=== PATIENT | female | born 1945 | race Caucasian/White ===

== ENCOUNTER 2021-07-03 12:37 | Emergency (ER) | payer MEDICARE ==
--- NOTE | 2021-07-03 13:28 | ERPHSYRPT ---
- History of Present Illness Time Seen by Provider: 07/03/21 12:45 Source: patient Exam Limitations: no limitations Patient Subjective Stated Complaint: PT presented alert and oriented X 3, skin pwd Pt mood is depressed, pt yawning. PT speech slightly slurred. Pt stated she found her grandson this morning and took an extra xanax. PT states her xanax is 2 mg each and she usually does not take many. Pt stated she was sad. PT denied any suicidal ideation several times. Triage Nursing Assessment: PT presented alert and oriented X 3, sleepy, yawning, slightly slurred speech. Physician History: Patient is a 76-year-old female presents to our ED with an accidental overdose of Xanax. Patient states that she found her grandson in his room this morning. Daughter at bedside states that patient had a history of drug addiction and they believe he likely overdosed. While in despair patient took 2 Xanax to help her cope with the situation. Patient took a total of 4 mg of Xanax. Family became concerned and called 911. Upon arrival patient's speech was a little slurred. No focal or lateralizing symptoms. Patient denies pain. No chest pain or shortness of breath. IV access established by EMS. IV fluids infused. Patient has no complaints at this time. No fever. No nausea or vomiting. No diarrhea. No rash. No cough. Patient is visibly upset due to the loss of her grandson. Patient denies homicidal and suicidal ideation Timing/Duration: today Severity: moderate Modifying Factors: Improves With: nothing Associated Symptoms: denies symptoms Allergies/Adverse Reactions: NKA Allergy (Verified 10/08/15 13:52) Home Medications: ALPRAZolam 1 MG [Xanax 1 mg] 1 mg PO BID 10/08/15 [History] Citalopram Hydrobromide [Celexa] 1 tab PO QAM 10/08/15 [History] Hx Tetanus, Diphtheria Vaccination/Date Given: No Hx Influenza Vaccination/Date Given: No Hx Pneumococcal Vaccination/Date Given: No Immunizations Up to Date: Yes Travel Risk - International Travel Have you traveled outside of the country in past 3 weeks: No - Coronavirus Screening Are you exhibiting any of the following symptoms?: No Close contact with a COVID-19 positive Pt in past 14-21 Days: No - Vaccine Status Have you recieved a Covid-19 vaccination: No - Review of Systems Constitutional: No Symptoms, No Fever, No Chills Eyes: No Symptoms Ears, Nose, & Throat: No Symptoms Respiratory: No Symptoms, No Cough, No Dyspnea Cardiac: No Symptoms, No Chest Pain, No Edema, No Syncope Abdominal/Gastrointestinal: No Symptoms, No Abdominal Pain, No Nausea, No Vomiting, No Diarrhea Genitourinary Symptoms: No Symptoms, No Dysuria Musculoskeletal: No Symptoms, No Back Pain, No Neck Pain Skin: No Symptoms, No Rash Neurological: No Symptoms, Speech Changes, Other (No facial droop no paralysis or weakness. No focal or lateralizing symptoms), No Dizziness, No Focal Weakness, No Sensory Changes, No Tics, No Tremors, No Vertigo Psychological: No Symptoms Endocrine: No Symptoms Hematologic/Lymphatic: No Symptoms Immunological/Allergic: No Symptoms All Other Systems: Reviewed and Negative - Past Medical History Pertinent Past Medical History: Yes Neurological History: No Pertinent History ENT History: No Pertinent History Cardiac History: No Pertinent History Respiratory History: COPD Endocrine Medical History: No Pertinent History Musculoskeletal History: Arthritis GI Medical History: No Pertinent History History: No Pertinent History Psycho-Social History: Anxiety Female Reproductive Disorders: Other Other Medical History: had partial hysterectomy due to dropped uterus and bladder tied up at that time - Past Surgical History Past Surgical History: Yes Neuro Surgical History: No Pertinent History Cardiac: No Pertinent History Respiratory: No Pertinent History Gastrointestinal: Cholecystectomy Genitourinary: No Pertinent History, Other Musculoskeletal: Joint Replacement Female Surgical History: Hysterectomy Other Surgical History: partial hysterectomy for uterus dropped and bladder tied up at that time - Social History Smoking Status: Never smoker Exposure to second hand smoke: Yes (grandson occasionall) Drug Use: none Patient Lives Alone: Yes - Nursing Vital Signs Nursing Vital Signs: Initial Vital Signs Temperature 98.2 F 07/03/21 12:39 Pulse Rate 74 07/03/21 12:39 Respiratory Rate 18 07/03/21 12:39 Blood Pressure 128/66 07/03/21 12:39 O2 Sat by Pulse Oximetry 99 07/03/21 12:39 Pain Scale Pain Intensity 0 - Physical Exam General Appearance: no apparent distress, alert Eye Exam: PERRL/EOMI, eyes nml inspection Ears, Nose, Throat Exam: normal ENT inspection, TMs normal, pharynx normal, moist mucous membranes Neck Exam: normal inspection, non-tender, supple, full range of motion Respiratory Exam: normal breath sounds, lungs clear, airway intact, No respiratory distress Cardiovascular Exam: regular rate/rhythm, normal heart sounds, normal peripheral pulses Gastrointestinal/Abdomen Exam: soft, normal bowel sounds, No tenderness, No mass Back Exam: normal inspection, normal range of motion, No CVA tenderness, No vertebral tenderness Extremity Exam: normal inspection, normal range of motion, pelvis stable Neurologic Exam: alert, oriented x 3, cooperative, bead builder II-XII nml as tested, normal mood/affect, nml cerebellar function, sensation nml, intoxicated appearance, depressed mood/affect, No motor deficits, No sensory deficit, No agitation Skin Exam: normal color, warm, dry, No rash Lymphatic Exam: No adenopathy SpO2 Interpretation: normal SpO2: 99 O2 Delivery: Room Air - Course Nursing assessment & vital signs reviewed: Yes EKG Interpreted by Me: RATE (74), Sinus Rhythm, NORMAL AXIS, Other (Prolonged AL interval. Left anterior fascicular block.) Ordered Tests: Active Orders 24 hr Category Date Time Status Computational Physicist STAT Care 07/03/21 13:17 Active IV Insertion STAT Care 07/03/21 13:17 Active Pulse Oximetry (ED) STAT Care 07/03/21 13:17 Active Medication Summary Generic Name Dose Route Start Last Admin Trade Name Freq PRN Reason Stop Dose Admin Sodium Chloride 1,000 mls @ 100 mls/hr 07/03/21 13:30 07/03/21 13:43 Sodium Chloride 0.9% 1000 Ml IV 08/02/21 13:29 100 mls/hr .Q10H MARILYN Administration - Progress Progress: improved Progress Note: Patient reassessed. She feels well. Patient ambulated in our ED with some assistance from her daughter. Patient states she feels well and is ready to go home. Patient daughter at bedside states she will go home with mother. Vitals have been stable throughout her stay in our ED. EKG normal sinus rhythm. Patient denies pain. No nausea or vomiting. No diaphoresis. Patient voices no other complaints at this time. She denies homicidal suicidal ideation. Portions of this note were created with voice recognition technology. There may be grammatical, spelling, punctuation or sound alike errors 07/03/21 16:20 Patient is 6 hours post accidental overdose 07/03/21 16:25 Counseled pt/family regarding: diagnosis, need for follow-up - Departure Departure Disposition: Home Clinical Impression: Benzodiazepine (tranquilizer) overdose Condition: Stable Critical Care Time: No Referrals: HAY DENNIS MD [Primary Care Provider] - Follow up/PCP as directed Additional Instructions: Discharge/Care Plan BETTIE TYLER was seen on 07/03/21 in the Emergency Room. The patient was counseled regarding Diagnosis,Lab results, Imaging studies, need for follow up and when to return to the Emergency Room. Prescriptions given: Discharge Note I have spoken with the patient and/or caregivers. I have explained the patient's condition, diagnosis and treatment plan based on the information available to me at this time. I have answered the patient's and/or caregiver's questions and ad dressed any concerns. The patient and/or caregivers have as good understanding of the patient's diagnosis, condition and treatment plan as can be expected at this point. The vital signs have been stable. The patient's condition is stable and appropriate for discharge from the emergency department. The patient will pursue further outpatient evaluation with the primary care physician or other designated or consulting physician as outlined in the discharge instructions. The patient and/or caregivers are agreeable to this plan of care and follow-up instructions have been explained in detail. The patient and/or caregivers have received these instruction. The patient/and or caregivers are aware that any significant change in condition or worsening of symptoms should prompt an immediate return to this or the closest emergency department or call 911.
[2021-07-03] MEDS ORDERED: Sodium Chloride 0.9% 1000 ML 1,000 ML IV SCH (13:30)
[2021-07-03] MEDS ORDERED: Sodium Chloride 0.9% 1000 ML 1,000 ML ONE (13:42)
[2021-07-03 16:04] VITALS: BP 141/76; PULSE 73
[2021-07-03 16:25] VITALS: O2SAT 99
== END 2021-07-03 16:37 | disposition home or self-care (01) ==
LOC: ED 12:37
DX: T42.4X1A Poisoning by benzodiazepines, accidental (unintentional), initial encounter (principal); R47.81 Slurred speech
CPT/HCPCS: 36000; 93041; 94760; 96360; 96361; 99284

== ENCOUNTER 2024-01-19 11:34 | Emergency (ER) | payer MEDICARE ==
[2024-01-19 12:00] VITALS: TEMP 98
--- NOTE | 2024-01-19 12:07 | ERPHSYRPT ---
- History of Present Illness Time Seen by Provider: 01/19/24 11:55 Source: patient Exam Limitations: no limitations Patient Subjective Stated Complaint: pt fell in her home this morning at an unknown time and laid for 2-3 hours and could not get up, pt did rotate from side to side Triage Nursing Assessment: Pt brought to the ER by EMS, vitals wnl, denies pain, pt had been incontinent of urine and stool, pt was unsure how long she was on the floor, states that she usually wakes around 0830, denies LOC, denies any injuries, denies hitting her head, pt does not know what caused her to fall, reports that she walks with a cane when she leaves the house, pt's oxygen was low 90's upon EMS arrival and was placed on 2L NC and she is now at 96%, redness to the lateral left knee, no other injuries noted Physician History: Pt states she fell this morning about 2-3 hours ago but does not know how she fell; states for the past year she has had similar episodes where she has fallen and does not know the reason. Pt c/o weakness in her left knee for years, a non- productive cough for years and urinary frequency for years. Pt states she has had diarrhea for the past 3 years including this morning. Pt denies chest pain, fever, abdominal pain. Pt states she has had generalized weakness. Allergies/Adverse Reactions: NKA Allergy (Verified 01/19/24 12:00) Home Medications: ALPRAZolam 1 MG [Xanax 1 mg] 2 mg PO DAILY 10/08/15 [History] Meloxicam [Mobic] 15 mg PO DAILY 01/19/24 [History] Hx Tetanus, Diphtheria Vaccination/Date Given: No Hx Influenza Vaccination/Date Given: No Hx Pneumococcal Vaccination/Date Given: No Travel Risk - International Travel Have you traveled outside of the country in past 3 weeks: No - Emerging Infectious Disease Are you exhibiting symptoms associated with any current EIDs: No - Review of Systems Constitutional: No Fever Ears, Nose, & Throat: No Throat Pain Respiratory: Cough Cardiac: No Chest Pain Abdominal/Gastrointestinal: Diarrhea, No Abdominal Pain Musculoskeletal: Other (left knee weakness) Neurological: No Headache, No Sensory Changes - Past Medical History Pertinent Past Medical History: Yes Neurological History: No Pertinent History ENT History: No Pertinent History Cardiac History: No Pertinent History Respiratory History: COPD Endocrine Medical History: No Pertinent History Musculoskeletal History: Arthritis GI Medical History: No Pertinent History History: No Pertinent History Psycho-Social History: Anxiety Female Reproductive Disorders: Other Other Medical History: had partial hysterectomy due to dropped uterus and bladder tied up at that time - Past Surgical History Past Surgical History: Yes Neuro Surgical History: No Pertinent History Cardiac: No Pertinent History Respiratory: No Pertinent History Gastrointestinal: Cholecystectomy Genitourinary: No Pertinent History, Other Musculoskeletal: Joint Replacement Female Surgical History: Hysterectomy Other Surgical History: partial hysterectomy for uterus dropped and bladder tied up at that time - Social History Smoking Status: Never smoker Exposure to second hand smoke: Yes (grandson occasionall) Drug Use: none Patient Lives Alone: Yes - Social Determinants of Health Will the patient participate in the screening: Yes Do you worry about a steady place to live?: No Do you have any problems with any of the following?: No known problems In the past 12 months,have you had to go without utilities?: No Transportation Issues: No Has anyone in your support network made you feel unsafe?: No Have you or anyone in your house had to go without enough: No - Nursing Vital Signs Nursing Vital Signs: Initial Vital Signs Temperature 98.0 F 01/19/24 11:45 Pulse Rate 87 01/19/24 11:45 Respiratory Rate 17 01/19/24 11:45 Blood Pressure 131/68 01/19/24 11:45 O2 Sat by Pulse Oximetry 95 01/19/24 11:45 Pain Scale Pain Intensity 0 - Bhavik Coma Score Best Eye Response (Wendel): (4) open spontaneously Best Verbal Response (Wendel): (5) oriented Best Motor Response (Bhavik): (6) obeys commands Wendel Total: 15 - Physical Exam General Appearance: alert Head Injury: no evidence of injury Eye Exam: eyes nml inspection ENT Exam: airway nml, hearing grossly normal Neck Exam: trachea midline Respiratory/Chest Exam: normal breath sounds Cardiovascular Exam: normal heart sounds Gastrointestinal Exam: soft, normal bowel sounds, No tenderness Back Exam: normal inspection, No vertebral tenderness Extremity Exam: normal range of motion, other (milk erythema of left knee) Peripheral Pulses: dorsalis-pedis (R): 1+, dorsalis-pedis (L): 1+ Neurologic Exam: alert, cooperative, sensation nml, No motor deficits Skin Exam: No cyanosis SpO2 Interpretation: normal SpO2: 95 O2 Delivery: Room Air - Course Nursing assessment & vital signs reviewed: Yes EKG Interpreted by Me: RATE (95), Sinus Rhythm, Left [place] Deviation, Other (QTc = 463; LAFB) - Radiology Exams Left Knee X-ray Interpretation: Discussed w/ radiologist (Osteopenia and mild/moderate tricompartmental degenerative changes greatest medial compartment. No other bony, articular or soft tissue abnormalities.) Chest X-ray Interpretation: Discussed w/ radiologist (AP/lateral chest obtained on stretcher less inflated and remains grossly clear. 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 Incidental paranasal sinus disease.) Ordered Tests: Active Orders 24 hr Category Date Time Status EKG-ER Only STAT Care 01/19/24 12:16 Active EKG-ER Only STAT Care 01/19/24 14:16 Active IV Insertion STAT Care 01/19/24 12:16 Active CHEST 2 VIEWS (PA AND LAT) Stat Exams 01/19/24 12:16 Completed HEAD WITHOUT CONTRAST [CT] Stat Exams 01/19/24 12:18 Completed KNEE (3 VIEWS) Stat Exams 01/19/24 12:17 Completed AMYLASE Stat Lab 01/19/24 12:45 Completed CBC W DIFF Stat Lab 01/19/24 12:45 Completed CMP Stat Lab 01/19/24 12:45 Completed LIPASE Stat Lab 01/19/24 12:45 Completed TROPONIN Q4H Lab 01/19/24 12:45 Completed TROPONIN Q4H Lab 01/19/24 14:40 Completed TROPONIN Q4H Lab 01/19/24 16:30 Ordered TROPONIN Q4H Lab 01/19/24 18:30 Ordered TROPONIN Q4H Lab 01/19/24 20:30 Ordered TROPONIN Q4H Lab 01/19/24 22:30 Ordered UA W/RFX UR CULTURE Stat Lab 01/19/24 12:16 Ordered Medication Summary Discontinued Medications Generic Name Dose Route Start Last Admin Trade Name Freq PRN Reason Stop Dose Admin Sodium Chloride 1,000 mls @ 999 mls/hr 01/19/24 12:16 01/19/24 14:27 Sodium Chloride 0.9% 1000 Ml IV 01/19/24 13:16 Infused .Q1H1M STA Infusion Sodium Chloride Confirm 01/19/24 12:20 Sodium Chloride 0.9% 1000 Ml Administered 01/19/24 12:21 Dose 1,000 mls @ .ROUTE .[facility] Lab/Rad Data: Laboratory Result Diagrams 01/19/24 12:45 01/19/24 12:45 Laboratory Results 01/19/24 01/19/24 01/19/24 Range/Units 14:40 12:45 12:45 WBC (3.98-10.04) x10^3/uL RBC (3.93-5.22) x10^6/uL Hgb (11.2-15.7) g/dL Hct (34.1-44.9) % MCV (79.4-94.8) fL MCH (25.6-32.2) pg MCHC (32.2-35.5) g/dL RDW (11.7-14.4) % Plt Count (182-369) x10^3/uL MPV (9.4-12.3) fL Gran % (34.0-71.1) % Immature Gran % (Auto) (0.001-0.429) % Nucleat RBC Rel Count (0.00-0.2) % Eos # (Auto) (0.04-0.36) x10^3/uL Immature Gran # (Auto) (0.001-0.031) x10^3u/L Absolute Lymphs (auto) (1.18-3.74) x10^3/uL Absolute Monos (auto) (0.24-0.86) x10^3/uL Absolute Nucleated RBC (0.00-0.012) x10^3u/L Lymphocytes % (19.3-51.7) % Monocytes % (4.7-12.5) % Eosinophils % (0.7-5.8) % Basophils % (0.1-1.2) % Absolute Granulocytes (1.56-6.13) x10^3/uL Basophils # (0.01-0.08) x10^3/uL Sodium 140 (135-145) mmol/L Potassium 3.9 (3.5-5.1) mmol/L Chloride 108 H (98-107) mmol/L Carbon Dioxide 25 (22-30) mmol/L Anion Gap 11.7 (5-15) MEQ/L BUN 8 (7-17) mg/dL Creatinine 0.41 L (0.52-1.04) mg/dL Estimated GFR 100.0 ML/MIN Glucose 109 H (74-106) mg/dL Calcium 9.5 (8.4-10.2) mg/dL Total Bilirubin 1.00 (0.2-1.3) mg/dL AST 35 (14-36) U/L ALT 20 (0-35) U/L Alkaline Phosphatase 82 (38-126) U/L Troponin I 0.047 H* 0.033 (0.000-0.033) ng/mL Serum Total Protein 6.8 (6.3-8.2) g/dL Albumin 4.0 (3.5-5.0) g/dL Amylase 70 (30-110) U/L Lipase 22 L (23-300) U/L Slides for Path Review 01/19/24 Range/Units 12:45 WBC 9.3 (3.98-10.04) x10^3/uL RBC 4.53 (3.93-5.22) x10^6/uL Hgb 13.6 (11.2-15.7) g/dL Hct 42.1 (34.1-44.9) % MCV 92.9 (79.4-94.8) fL MCH 30.0 (25.6-32.2) pg MCHC 32.3 (32.2-35.5) g/dL RDW 13.4 (11.7-14.4) % Plt Count 215 (182-369) x10^3/uL MPV 9.8 (9.4-12.3) fL Gran % 82.1 H (34.0-71.1) % Immature Gran % (Auto) 0.3 (0.001-0.429) % Nucleat RBC Rel Count 0.0 (0.00-0.2) % Eos # (Auto) 0 L (0.04-0.36) x10^3/uL Immature Gran # (Auto) 0.03 (0.001-0.031) x10^3u/L Absolute Lymphs (auto) 0.89 L (1.18-3.74) x10^3/uL Absolute Monos (auto) 0.73 (0.24-0.86) x10^3/uL Absolute Nucleated RBC 0.00 (0.00-0.012) x10^3u/L Lymphocytes % 9.6 L (19.3-51.7) % Monocytes % 7.8 (4.7-12.5) % Eosinophils % 0.0 L (0.7-5.8) % Basophils % 0.2 (0.1-1.2) % Absolute Granulocytes 7.64 H (1.56-6.13) x10^3/uL Basophils # 0.02 (0.01-0.08) x10^3/uL Sodium (135-145) mmol/L Potassium (3.5-5.1) mmol/L Chloride (98-107) mmol/L Carbon Dioxide (22-30) mmol/L Anion Gap (5-15) MEQ/L BUN (7-17) mg/dL Creatinine (0.52-1.04) mg/dL Estimated GFR ML/MIN Glucose (74-106) mg/dL Calcium (8.4-10.2) mg/dL Total Bilirubin (0.2-1.3) mg/dL AST (14-36) U/L ALT (0-35) U/L Alkaline Phosphatase (38-126) U/L Troponin I (0.000-0.033) ng/mL Serum Total Protein (6.3-8.2) g/dL Albumin (3.5-5.0) g/dL Amylase (30-110) U/L Lipase (23-300) U/L Slides for Path Review YES - Progress Progress: unchanged Will see patient in: other (Spoke with & discussed pt with Dr. Beasley(Hospitalist)([id number]) who accepted pt for transfer to [facility] as a direct admission.) Counseled pt/family regarding: lab results, diagnosis, rad results Medical Desision Making - Diagnostic Testing Diagnostic test were ordered, analyzed, and reviewed by me: Yes Radiological Interpretation: Discussed w/ radiologist - Departure Departure Disposition: Transfer ([facility]) Clinical Impression: Fall, Weakness, Elevated troponin Condition: Stable Critical Care Time: No Referrals: HAY DENNIS MD [Primary Care Provider] - Follow up/PCP as directed
[2024-01-19] MEDS ORDERED: Sodium Chloride 0.9% 1000 ML 1,000 ML ONE (12:20)
[2024-01-19] MEDS: Sodium Chloride 0.9% 1000 ML 1,000 ML IV STA (12:21)
[2024-01-19 12:56] LABS: Absolute Neutrophil Ct (ANC) 7.64 x10^3/uL (1.56-6.13); BASOPHIL % 0.2 % (0.1-1.2); Basophil (Absolute #) 0.02 x10^3/uL (0.01-0.08); Eosinophil (Absolute #) 0 x10^3/uL (0.04-0.36); Hematocrit 42.1 % (34.1-44.9); Hemoglobin 13.6 g/dL (11.2-15.7); IMMATURE GRAN # 0.03 x10^3u/L (0.001-0.031); IMMATURE GRAN % 0.3 % (0.001-0.429); Lymphocyte (Absolute #) 0.89 x10^3/uL (1.18-3.74); Lymphocytes % 9.6 % (19.3-51.7); Mean Cell Volume 92.9 fL (79.4-94.8); Mean Corpuscular Hgb Concent. 32.3 g/dL (32.2-35.5); Mean Platelet Volume 9.8 fL (9.4-12.3); Monocyte (Absolute #) 0.73 x10^3/uL (0.24-0.86); Monocytes % 7.8 % (4.7-12.5); Neutrophil % 82.1 % (34.0-71.1); Platelet Count 215 x10^3/uL (182-369); Red Blood Count 4.53 x10^6/uL (3.93-5.22); Red Cell Distribution Width 13.4 % (11.7-14.4); White Blood Count 9.3 x10^3/uL (3.98-10.04)
--- NOTE | 2024-01-19 13:08 | XRAY ---
Indication: Status post fall. Comparison: July 15, 2023 AP/lateral chest obtained on stretcher less inflated and remains grossly clear. Heart not enlarged. Bony thorax intact again with osteopenia and mild degenerative changes. No new/acute findings.
--- NOTE | 2024-01-19 13:08 | XRAY ---
Indication: Status post fall. Comparison: None 3 view left knee demonstrates osteopenia and mild/moderate tricompartmental degenerative changes greatest medial compartment. No other bony, articular, or soft tissue abnormalities.
[2024-01-19 13:10] LABS: ANION GAP 11.7 MEQ/L (5-15); Calcium 9.5 mg/dL (8.4-10.2); Creatinine 1 0.41 mg/dL (0.52-1.04); Potassium 3.9 mmol/L (3.5-5.1); Total Protein 6.8 g/dL (6.3-8.2)
[2024-01-19 13:26] LABS: Slide Review 1 YES
--- NOTE | 2024-01-19 13:38 | XRAY ---
Indication: Found on floor following fall. Altered mental status. Multiple contiguous axial images obtained through the head without contrast. Comparison: None Age-appropriate global atrophy, mild periventricular degenerative micro-ischemia bilaterally, and remote lacunar infarct left basal ganglia. No acute intracranial hemorrhage, abnormal extra-axial fluid collection, or mass effect. Fourth ventricle is midline without hydrocephalus. Bony calvarium intact. Near complete opacification right maxillary and much lesser degree both ethmoid sinuses. Mastoid air cells are clear. 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 Incidental paranasal sinus disease.
[2024-01-19 18:15] VITALS: BP 115/58; PULSE 87; RESP 14; O2SAT 97
== END 2024-01-19 19:26 | disposition short-term general hospital (02) ==
LOC: ED 11:34
DX: R29.6 Repeated falls (principal); R53.1 Weakness; R77.8 Other specified abnormalities of plasma proteins; Z79.899 Other long term (current) drug therapy
CPT/HCPCS: 36415; 70450; 71046; 73562; 80053; 82150; 83690; 84484; 85025; 93005; 96360; 99284

== ENCOUNTER 2024-10-21 12:00 | Inpatient (IN) | payer MEDICARE ==
--- NOTE | 2024-10-21 12:07 | ERPHSYRPT ---
- History of Present Illness Time Seen by Provider: 10/21/24 12:07 Source: patient, EMS Exam Limitations: clinical condition Physician History: Patient brought in by ambulance today after neighbor was checking on patient and unable to get her to come to the door. She was found down on the floor for unknown time period. She is alert and oriented on arrival. She denies sob, cp, abd pain, nausea, vomiting or extremity pain. Patient is able to fully move all extremities. Occurred: other (unknown, within last 24 hours) Reason for Fall: unknown Injuries/Pain Location: no injury Loss of Consciousness: unsure Severity of Pain-Max: none Severity of Pain-Current: none Modifying Factors: Worsens With: nothing Associated Symptoms (Fall): denies symptoms Allergies/Adverse Reactions: NKA Allergy (Verified 10/21/24 13:10) Home Medications: ALPRAZolam 1 MG [Xanax 1 mg] 2 mg PO HS 10/08/15 [History] Lisinopril 5 mg [Zestril 5 MG] 5 mg PO DAILY 10/21/24 [History] Hx Tetanus, Diphtheria Vaccination/Date Given: No Hx Influenza Vaccination/Date Given: No Hx Pneumococcal Vaccination/Date Given: No Travel Risk - Emerging Infectious Disease Are you exhibiting symptoms associated with any current EIDs: No - Review of Systems All Other Systems: Reviewed and Negative - Past Medical History Pertinent Past Medical History: Yes Neurological History: No Pertinent History ENT History: No Pertinent History Cardiac History: No Pertinent History Respiratory History: COPD Endocrine Medical History: No Pertinent History Musculoskeletal History: Arthritis GI Medical History: No Pertinent History History: No Pertinent History Psycho-Social History: Anxiety Female Reproductive Disorders: Other Other Medical History: had partial hysterectomy due to dropped uterus and bladder tied up at that time - Past Surgical History Past Surgical History: Yes Neuro Surgical History: No Pertinent History Cardiac: No Pertinent History Respiratory: No Pertinent History Gastrointestinal: Cholecystectomy Genitourinary: No Pertinent History, Other Musculoskeletal: Joint Replacement Female Surgical History: Hysterectomy Other Surgical History: partial hysterectomy for uterus dropped and bladder tied up at that time - Social History Smoking Status: Never smoker Exposure to second hand smoke: Yes (grandson occasionall) Drug Use: none Patient Lives Alone: Yes - Social Determinants of Health Will the patient participate in the screening: Yes Do you worry about a steady place to live?: No In the past 12 months,have you had to go without utilities?: No Transportation Issues: No Has anyone in your support network made you feel unsafe?: No Have you or anyone in your house had to go w/o enough food: No - Nursing Vital Signs Nursing Vital Signs: Initial Vital Signs Temperature 97.8 F 10/21/24 12:20 O2 Sat by Pulse Oximetry 96 10/21/24 12:20 Pain Scale Pain Intensity 0 - Bhavik Coma Score Best Eye Response ([place]): (4) open spontaneously Best Verbal Response (Bhavik): (5) oriented Best Motor Response (Bhavik): (6) obeys commands Bhavik Total: 15 - Physical Exam General Appearance: no apparent distress Head Injury: no evidence of injury Eye Exam: PERRL/EOMI ENT Exam: airway nml, nml ext.inspection Neck Exam: supple, trachea midline, full range of motion, normal alignment, normal inspection Respiratory/Chest Exam: normal breath sounds, No respiratory distress Cardiovascular Exam: normal heart sounds, regular rate/rhythm Gastrointestinal Exam: soft, No tenderness, No distention, No mass, No guarding, No rebound Back Exam: normal inspection, normal range of motion Extremity Exam: normal inspection, normal range of motion, capillary refill <3 sec, No contusions, No deformities, No lacerations, No joint swelling Neurologic Exam: alert, oriented x 3, cooperative, 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, nml cerebellar function, confusion (at times) Skin Exam: normal color, warm, dry, No rash SpO2 Interpretation: borderline oxygenation O2 Delivery: Room Air - Course Nursing assessment & vital signs reviewed: Yes EKG Interpreted by Me: RATE (86), A-fib, NORMAL AXIS, NORMAL INTERVALS, NORMAL QRS, Non-specific ST Changes - Radiology Exams Chest X-ray Interpretation: Interpreted by me, Infiltrates (right) Ordered Tests: Active Orders 24 hr Category Date Time Status Vessel Operator STAT Care 10/21/24 12:08 Completed Cath for Specimen-Straight STAT Care 10/21/24 12:51 Completed EKG-ER Only STAT Care 10/21/24 12:07 Completed IV Insertion STAT Care 10/21/24 12:07 Completed Oxygen-ED Only Nasal Cannula 2 lpm Care 10/21/24 14:31 Completed CHEST 1 VIEW (PORTABLE) Stat Exams 10/21/24 13:22 Taken ARTERIAL BLOOD GASES Stat Lab 10/21/24 14:29 Results CBC W DIFF Stat Lab 10/21/24 12:15 Completed CK-Creatinine Phosphokinase Stat Lab 10/21/24 12:15 Completed CMP Stat Lab 10/21/24 12:15 Completed CULTURE,URINE Stat Lab 10/21/24 12:51 Received Lactic Acid Stat Lab 10/21/24 14:32 Completed TROPONIN Q4H Lab 10/21/24 12:15 Completed TSH, 3RD Generation Stat Lab 10/21/24 12:15 Completed UA W/RFX UR CULTURE Stat Lab 10/21/24 12:51 Completed Medication Summary Generic Name Dose Route Start Last Admin Trade Name Freq PRN Reason Stop Dose Admin Albuterol/Ipratropium 3 ml 10/21/24 16:21 10/21/24 17:13 Ipratropium/Albuterol Sulfate 3 Ml Ampul.Neb IH 11/20/24 16:20 3 ml Q6HPRN PRN Administration SHORTNESS OF BREATH/WHEEZING Guaifenesin/Codeine Phosphate 10 ml 10/21/24 17:56 Guaifenesin/Codeine Phosphate 5 Ml Udcup PO 11/20/24 17:55 Q4H PRN PRN COUGH Sodium Chloride 1,000 mls @ 100 mls/hr 10/21/24 16:30 10/21/24 17:37 Sodium Chloride 0.9% 1000 Ml IV 11/20/24 16:29 100 mls/hr .Q10H MARILYN Administration Ceftriaxone Sodium 1 gm in 100 mls @ 200 mls/hr 10/22/24 10:00 Rocephin 1 Gm / 100 Ml Nacl IV 11/21/24 09:59 Q24H10 MARILYN Azithromycin 500 mg/ Sodium 250 mls @ 250 mls/hr 10/21/24 22:00 Chloride IV 11/20/24 21:59 Q24H22 MARILYN Nystatin 0 gm 10/21/24 22:00 Nystatin Cream 30 Gm 30 Gm Tube TOP 10/28/24 21:59 BID MARILYN Pantoprazole Sodium 40 mg 10/22/24 10:00 Protonix (Pantoprazole) 40 Mg Tablet PO 11/21/24 09:59 DAILY MARILYN Discontinued Medications Generic Name Dose Route Start Last Admin Trade Name Freq PRN Reason Stop Dose Admin Sodium Chloride 1,000 mls @ 999 mls/hr 10/21/24 12:07 10/21/24 13:30 Sodium Chloride 0.9% 1000 Ml IV 10/21/24 13:07 Infused .Q1H1M STA Infusion Sodium Chloride Confirm 10/21/24 12:21 Sodium Chloride 0.9% 1000 Ml Administered 10/21/24 12:22 Dose 1,000 mls @ ud .ROUTE .STK-MED ONE Ceftriaxone Sodium 2 gm in 100 mls @ 200 mls/hr 10/22/24 14:15 10/21/24 15:15 Rocephin 2 Gm/100 Ml Nacl IV 10/22/24 14:44 Infused STAT ONE Infusion Ceftriaxone Sodium Confirm 10/21/24 14:26 Rocephin 2 Gm/100 Ml Nacl Administered 10/21/24 14:27 Dose 2 gm in 100 mls @ ud IV .STK-MED ONE Nystatin Confirm 10/21/24 17:28 Nystatin Cream 30 Gm 30 Gm Tube Administered 10/21/24 17:29 Dose 30 gm .ROUTE .STK-MED ONE Lab/Rad Data: Laboratory Result Diagrams 10/21/24 12:15 10/21/24 15:35 Laboratory Results 10/21/24 10/21/24 10/21/24 Range/Units 15:35 15:35 15:35 WBC (3.98-10.04) x10^3/uL RBC (3.93-5.22) x10^6/uL Hgb (11.2-15.7) g/dL Hct (34.1-44.9) % MCV (79.4-94.8) fL MCH (25.6-32.2) pg MCHC (32.2-35.5) g/dL RDW (11.7-14.4) % Plt Count (182-369) x10^3/uL MPV (9.4-12.3) fL Gran % (34.0-71.1) % Immature Gran % (Auto) (0.001-0.429) % Nucleat RBC Rel Count (0.00-0.2) % Eos # (Auto) (0.04-0.36) x10^3/uL Immature Gran # (Auto) (0.001-0.031) x10^3u/L Absolute Lymphs (auto) (1.18-3.74) x10^3/uL Absolute Monos (auto) (0.24-0.86) x10^3/uL Absolute Nucleated RBC (0.00-0.012) x10^3u/L Lymphocytes % (19.3-51.7) % Monocytes % (4.7-12.5) % Eosinophils % (0.7-5.8) % Basophils % (0.1-1.2) % Absolute Granulocytes (1.56-6.13) x10^3/uL Basophils # (0.01-0.08) x10^3/uL Puncture Site pCO2 (35-45) mmHg pO2 (75-100) mmHg Base Excess (-2.0-2.0) O2 Saturation (94-100) g/dF ABG pH (7.35-7.45) ABG HCO3 (22-28) ABG O2 Sat (Measured) (95-100) % Randall Test A-a Gradient a/A Ratio Hemoglobin Carboxyhemoglobin (0.0-6.9) % THgb Methemoglobin (1.4-1.5) % Temperature C POC O2 Flow Rate % Sodium 139 (135-145) mmol/L Potassium 3.7 (3.5-5.1) mmol/L Chloride 106 (98-107) mmol/L Carbon Dioxide 24 (22-30) mmol/L Anion Gap 13.1 (5-15) MEQ/L BUN 14 (7-17) mg/dL Creatinine 0.43 L (0.52-1.04) mg/dL Estimated GFR 98.3 ML/MIN Glucose 104 (74-106) mg/dL Lactic Acid (0.4-2.0) Calcium 8.5 (8.4-10.2) mg/dL Total Bilirubin 0.60 (0.2-1.3) mg/dL AST 93 H (14-36) U/L ALT 42 H (0-35) U/L Alkaline Phosphatase 86 (38-126) U/L Ammonia < 9 L (9-30) umol/L Creatine Kinase (30-135) U/L Troponin I (0.000-0.033) ng/mL Serum Total Protein 6.7 (6.3-8.2) g/dL Albumin 3.9 (3.5-5.0) g/dL Procalcitonin 0.113 H (0.030-0.080) ng/mL Free T4 (0.78-2.19) ng/dL TSH 3rd Generation (0.470-4.680) mIU/L Urine Color (Yellow) Urine Appearance (Clear) Urine pH (4.6-8.0) Ur Specific [place] (1.005-1.030) Urine Protein (Negative) Urine Glucose (UA) (Negative) mg/dL Urine Ketones (Negative) Urine Blood (Negative) Urine Nitrite (Negative) Urine Bilirubin (Negative) Urine Urobilinogen (0.2) mg/dL Ur Leukocyte Esterase (Negative) U Hyaline Cast (Auto) (0-2) /LPF Urine Microscopic RBC (0-5) /HPF Urine Microscopic WBC (0-5) /HPF Ur Epithelial Cells (None Seen) /HPF Urine Bacteria (None Seen) /HPF Urine Culture Reflexed (NO) 10/21/24 10/21/24 10/21/24 Range/Units 14:32 14:29 12:51 WBC (3.98-10.04) x10^3/uL RBC (3.93-5.22) x10^6/uL Hgb (11.2-15.7) g/dL Hct (34.1-44.9) % MCV (79.4-94.8) fL MCH (25.6-32.2) pg MCHC (32.2-35.5) g/dL RDW (11.7-14.4) % Plt Count (182-369) x10^3/uL MPV (9.4-12.3) fL Gran % (34.0-71.1) % Immature Gran % (Auto) (0.001-0.429) % Nucleat RBC Rel Count (0.00-0.2) % Eos # (Auto) (0.04-0.36) x10^3/uL Immature Gran # (Auto) (0.001-0.031) x10^3u/L Absolute Lymphs (auto) (1.18-3.74) x10^3/uL Absolute Monos (auto) (0.24-0.86) x10^3/uL Absolute Nucleated RBC (0.00-0.012) x10^3u/L Lymphocytes % (19.3-51.7) % Monocytes % (4.7-12.5) % Eosinophils % (0.7-5.8) % Basophils % (0.1-1.2) % Absolute Granulocytes (1.56-6.13) x10^3/uL Basophils # (0.01-0.08) x10^3/uL Puncture Site Pending pCO2 35 (35-45) mmHg pO2 130 H* (75-100) mmHg Base Excess -3.7 L (-2.0-2.0) O2 Saturation 97.6 (94-100) g/dF ABG pH 7.38 (7.35-7.45) ABG HCO3 20.7 L (22-28) ABG O2 Sat (Measured) 99.8 (95-100) % Randall Test Pending A-a Gradient 54 a/A Ratio 0.71 Hemoglobin 15.0 Carboxyhemoglobin 1.3 (0.0-6.9) % THgb Methemoglobin 0.8 L (1.4-1.5) % Temperature 37.0 C POC O2 Flow Rate 32 % Sodium (135-145) mmol/L Potassium 3.7 (3.5-5.1) mmol/L Chloride (98-107) mmol/L Carbon Dioxide (22-30) mmol/L Anion Gap (5-15) MEQ/L BUN (7-17) mg/dL Creatinine (0.52-1.04) mg/dL Estimated GFR ML/MIN Glucose (74-106) mg/dL Lactic Acid 2.0 (0.4-2.0) Calcium (8.4-10.2) mg/dL Total Bilirubin (0.2-1.3) mg/dL AST (14-36) U/L ALT (0-35) U/L Alkaline Phosphatase (38-126) U/L Ammonia (9-30) umol/L Creatine Kinase (30-135) U/L Troponin I (0.000-0.033) ng/mL Serum Total Protein (6.3-8.2) g/dL Albumin (3.5-5.0) g/dL Procalcitonin (0.030-0.080) ng/mL Free T4 (0.78-2.19) ng/dL TSH 3rd Generation (0.470-4.680) mIU/L Urine Color Dark Yellow A (Yellow) Urine Appearance Cloudy A (Clear) Urine pH 5.0 (4.6-8.0) Ur Specific [place] 1.025 (1.005-1.030) Urine Protein 100 A (Negative) Urine Glucose (UA) Negative (Negative) mg/dL Urine Ketones Trace A (Negative) Urine Blood Large A (Negative) Urine Nitrite Positive A (Negative) Urine Bilirubin Negative (Negative) Urine Urobilinogen 0.2 (0.2) mg/dL Ur Leukocyte Esterase Negative (Negative) U Hyaline Cast (Auto) 3-5 A (0-2) /LPF Urine Microscopic RBC 6-10 A (0-5) /HPF Urine Microscopic WBC 6-10 A (0-5) /HPF Ur Epithelial Cells Moderate A (None Seen) /HPF Urine Bacteria Many A (None Seen) /HPF Urine Culture Reflexed ORDERED SEPARATELY (NO) 10/21/24 10/21/24 10/21/24 Range/Units 12:15 12:15 12:15 WBC (3.98-10.04) x10^3/uL RBC (3.93-5.22) x10^6/uL Hgb (11.2-15.7) g/dL Hct (34.1-44.9) % MCV (79.4-94.8) fL MCH (25.6-32.2) pg MCHC (32.2-35.5) g/dL RDW (11.7-14.4) % Plt Count (182-369) x10^3/uL MPV (9.4-12.3) fL Gran % (34.0-71.1) % Immature Gran % (Auto) (0.001-0.429) % Nucleat RBC Rel Count (0.00-0.2) % Eos # (Auto) (0.04-0.36) x10^3/uL Immature Gran # (Auto) (0.001-0.031) x10^3u/L Absolute Lymphs (auto) (1.18-3.74) x10^3/uL Absolute Monos (auto) (0.24-0.86) x10^3/uL Absolute Nucleated RBC (0.00-0.012) x10^3u/L Lymphocytes % (19.3-51.7) % Monocytes % (4.7-12.5) % Eosinophils % (0.7-5.8) % Basophils % (0.1-1.2) % Absolute Granulocytes (1.56-6.13) x10^3/uL Basophils # (0.01-0.08) x10^3/uL Puncture Site pCO2 (35-45) mmHg pO2 (75-100) mmHg Base Excess (-2.0-2.0) O2 Saturation (94-100) g/dF ABG pH (7.35-7.45) ABG HCO3 (22-28) ABG O2 Sat (Measured) (95-100) % Randall Test A-a Gradient a/A Ratio Hemoglobin Carboxyhemoglobin (0.0-6.9) % THgb Methemoglobin (1.4-1.5) % Temperature C POC O2 Flow Rate % Sodium 141 (135-145) mmol/L Potassium 3.8 (3.5-5.1) mmol/L Chloride 108 H (98-107) mmol/L Carbon Dioxide 16 L* (22-30) mmol/L Anion Gap 21.6 H (5-15) MEQ/L BUN 14 (7-17) mg/dL Creatinine 0.50 L (0.52-1.04) mg/dL Estimated GFR 94.8 ML/MIN Glucose 110 H (74-106) mg/dL Lactic Acid (0.4-2.0) Calcium 9.2 (8.4-10.2) mg/dL Total Bilirubin 0.70 (0.2-1.3) mg/dL AST 98 H (14-36) U/L ALT 47 H (0-35) U/L Alkaline Phosphatase 94 (38-126) U/L Ammonia (9-30) umol/L Creatine Kinase > 3200 H (30-135) U/L Troponin I 0.022 (0.000-0.033) ng/mL Serum Total Protein 7.4 (6.3-8.2) g/dL Albumin 4.4 (3.5-5.0) g/dL Procalcitonin (0.030-0.080) ng/mL Free T4 1.00 (0.78-2.19) ng/dL TSH 3rd Generation 1.765 (0.470-4.680) mIU/L Urine Color (Yellow) Urine Appearance (Clear) Urine pH (4.6-8.0) Ur Specific [place] (1.005-1.030) Urine Protein (Negative) Urine Glucose (UA) (Negative) mg/dL Urine Ketones (Negative) Urine Blood (Negative) Urine Nitrite (Negative) Urine Bilirubin (Negative) Urine Urobilinogen (0.2) mg/dL Ur Leukocyte Esterase (Negative) U Hyaline Cast (Auto) (0-2) /LPF Urine Microscopic RBC (0-5) /HPF Urine Microscopic WBC (0-5) /HPF Ur Epithelial Cells (None Seen) /HPF Urine Bacteria (None Seen) /HPF Urine Culture Reflexed (NO) 10/21/24 Range/Units 12:15 WBC 8.0 (3.98-10.04) x10^3/uL RBC 5.11 (3.93-5.22) x10^6/uL Hgb 15.5 (11.2-15.7) g/dL Hct 51.0 H (34.1-44.9) % MCV 99.8 H (79.4-94.8) fL MCH 30.3 (25.6-32.2) pg MCHC 30.4 L (32.2-35.5) g/dL RDW 13.6 (11.7-14.4) % Plt Count 129 L (182-369) x10^3/uL MPV 10.9 (9.4-12.3) fL Gran % 78.6 H (34.0-71.1) % Immature Gran % (Auto) 0.2 (0.001-0.429) % Nucleat RBC Rel Count 0.0 (0.00-0.2) % Eos # (Auto) 0 L (0.04-0.36) x10^3/uL Immature Gran # (Auto) 0.02 (0.001-0.031) x10^3u/L Absolute Lymphs (auto) 0.78 L (1.18-3.74) x10^3/uL Absolute Monos (auto) 0.91 H (0.24-0.86) x10^3/uL Absolute Nucleated RBC 0.00 (0.00-0.012) x10^3u/L Lymphocytes % 9.7 L (19.3-51.7) % Monocytes % 11.3 (4.7-12.5) % Eosinophils % 0.0 L (0.7-5.8) % Basophils % 0.2 (0.1-1.2) % Absolute Granulocytes 6.31 H (1.56-6.13) x10^3/uL Basophils # 0.02 (0.01-0.08) x10^3/uL Puncture Site pCO2 (35-45) mmHg pO2 (75-100) mmHg Base Excess (-2.0-2.0) O2 Saturation (94-100) g/dF ABG pH (7.35-7.45) ABG HCO3 (22-28) ABG O2 Sat (Measured) (95-100) % Randall Test A-a Gradient a/A Ratio Hemoglobin Carboxyhemoglobin (0.0-6.9) % THgb Methemoglobin (1.4-1.5) % Temperature C POC O2 Flow Rate % Sodium (135-145) mmol/L Potassium (3.5-5.1) mmol/L Chloride (98-107) mmol/L Carbon Dioxide (22-30) mmol/L Anion Gap (5-15) MEQ/L BUN (7-17) mg/dL Creatinine (0.52-1.04) mg/dL Estimated GFR ML/MIN Glucose (74-106) mg/dL Lactic Acid (0.4-2.0) Calcium (8.4-10.2) mg/dL Total Bilirubin (0.2-1.3) mg/dL AST (14-36) U/L ALT (0-35) U/L Alkaline Phosphatase (38-126) U/L Ammonia (9-30) umol/L Creatine Kinase (30-135) U/L Troponin I (0.000-0.033) ng/mL Serum Total Protein (6.3-8.2) g/dL Albumin (3.5-5.0) g/dL Procalcitonin (0.030-0.080) ng/mL Free T4 (0.78-2.19) ng/dL TSH 3rd Generation (0.470-4.680) mIU/L Urine Color (Yellow) Urine Appearance (Clear) Urine pH (4.6-8.0) Ur Specific [place] (1.005-1.030) Urine Protein (Negative) Urine Glucose (UA) (Negative) mg/dL Urine Ketones (Negative) Urine Blood (Negative) Urine Nitrite (Negative) Urine Bilirubin (Negative) Urine Urobilinogen (0.2) mg/dL Ur Leukocyte Esterase (Negative) U Hyaline Cast (Auto) (0-2) /LPF Urine Microscopic RBC (0-5) /HPF Urine Microscopic WBC (0-5) /HPF Ur Epithelial Cells (None Seen) /HPF Urine Bacteria (None Seen) /HPF Urine Culture Reflexed (NO) - Progress Progress: improved Progress Note: Patient has no obvious areas of injury, she denies pain and has full range of motion of all extremities. She is able to roll and transfer without difficulty or pain. No need for imaging at this time. EKG showed rate controlled Afib, unsure if this is new however patient isn't currently on anticoagulation. Will defer anticoagulation today due to recent possible fall. No need for rate intervention at this time. Patient found to have UTI, normal WBC. Started Ceftriaxone. CK >3200 with normal kidney function. NS bolus given x 2L in ED. Patient's CXR shows small infiltrate in right lung. Patient needs admission for rhabdo and UTI. Spoke with Dr. Grover who accepts admission at [id number]. Discussed with .: Other (Dr. Grover) Counseled pt/family regarding: lab results, diagnosis, need for follow-up, rad results Medical Desision Making - Discussion of managment Care discussed with:: hospitalist Reviewed:: Test results Agreed on:: Treatment plan, place in obs Will see patient: in hospital - Diagnostic Testing Diagnostic test were ordered, analyzed, and reviewed by me: Yes Radiological Interpretation: Interpreted by me - Risk of complications The pt has a mod risk of morbidity or mortality based on: Need for prescription drug management The pt has a high risk of morbidity or mortality based on: Decision regarding hospitilization or escalation of hosp level of care - Departure Departure Disposition: Observation Clinical Impression: UTI (urinary tract infection), Fall, Rhabdomyolysis, Low bicarbonate level, New onset a-fib Condition: Stable Critical Care Time: No
[2024-10-21] MEDS ORDERED: Sodium Chloride 0.9% 1000 ML 1,000 ML ONE (12:21)
[2024-10-21] MEDS: Sodium Chloride 0.9% 1000 ML 1,000 ML IV STA (12:23)
[2024-10-21 13:29] LABS: Absolute Neutrophil Ct (ANC) 6.31 x10^3/uL (1.56-6.13); BASOPHIL % 0.2 % (0.1-1.2); Basophil (Absolute #) 0.02 x10^3/uL (0.01-0.08); Eosinophil (Absolute #) 0 x10^3/uL (0.04-0.36); Hemoglobin 15.5 g/dL (11.2-15.7); IMMATURE GRAN # 0.02 x10^3u/L (0.001-0.031); IMMATURE GRAN % 0.2 % (0.001-0.429); Lymphocyte (Absolute #) 0.78 x10^3/uL (1.18-3.74); Lymphocytes % 9.7 % (19.3-51.7); Mean Cell Volume 99.8 fL (79.4-94.8); Mean Corpuscular Hemoglobin 30.3 pg (25.6-32.2); Mean Corpuscular Hgb Concent. 30.4 g/dL (32.2-35.5); Mean Platelet Volume 10.9 fL (9.4-12.3); Monocyte (Absolute #) 0.91 x10^3/uL (0.24-0.86); Monocytes % 11.3 % (4.7-12.5); Neutrophil % 78.6 % (34.0-71.1); Platelet Count 129 x10^3/uL (182-369); Red Blood Count 5.11 x10^6/uL (3.93-5.22); Red Cell Distribution Width 13.6 % (11.7-14.4)
[2024-10-21 13:52] LABS: Appearance Cloudy (Clear); Bacteria Many /HPF (None Seen); Bilirubin Negative (Negative); Blood Large (Negative); Epithelial Cells Moderate /HPF (None Seen); Glucose, Urine Negative (Negative); Ketones Trace (Negative); Leukocyte Esterase Negative (Negative); Nitrite Positive (Negative); Protein,Urine Dip 100 (Negative); Specific Gravity 1.025 (1.005-1.030); Urobilinogen 0.2 mg/dL (0.2)
[2024-10-21 14:24] LABS: ALBUMIN 4.4 g/dL (3.5-5.0); ALKALINE PHOSPHATASE 94 U/L (38-126); ANION GAP 21.6 MEQ/L (5-15); BLOOD UREA NITROGEN 14 mg/dL (7-17); CHLORIDE 108 mmol/L (98-107); Calcium 9.2 mg/dL (8.4-10.2); EST GLOMERULAR FILTRATION RATE 94.8 ML/MIN; Glucose 110 mg/dL (74-106); Potassium 3.8 mmol/L (3.5-5.1); SGOT/AST 98 U/L (14-36); SGPT/ALT 47 U/L (0-35); SODIUM 141 mmol/L (135-145); TSH, 3RD Generation 1.765 mIU/L (0.470-4.680); Total Protein 7.4 g/dL (6.3-8.2)
[2024-10-21 14:26] LABS: Carbon Dioxide 16 mmol/L (22-30)
[2024-10-21] MEDS ORDERED: ROCEPHIN 2 GM/100 ML NACL 2 GM/100 ML IVPB IV ONE (14:26)
[2024-10-21] MEDS: ROCEPHIN 2 GM/100 ML NACL 2 GM/100 ML IVPB IV ONE (14:29)
[2024-10-21 14:41] LABS: CK-Creatinine Phosphokinase > 3200 U/L (30-135)
[2024-10-21 14:44] LABS: A-aADO2 54; ABG POTASSIUM 3.7 (3.5-5.1); ARTERIAL BLD GAS O2 SATURATION 99.8 % (95-100); ARTERIAL BLOOD GAS BASE EXCESS -3.7 (-2.0-2.0); ARTERIAL BLOOD GAS FIO2 32 %; ARTERIAL BLOOD GAS PCO2 35 mmHg (35-45); ARTERIAL BLOOD GAS PO2 130 mmHg (75-100); ARTERIAL BLOOD GAS pH 7.38 (7.35-7.45); CARBOXYHEMOGLOBIN 1.3 % THgb (0.0-6.9); HCO3- 20.7 (22-28); HGB O2 SAT 97.6 g/dF (94-100); Methhemoglobin 0.8 % (1.4-1.5); paO2 pAO1 0.71
[2024-10-21 16:10] LABS: ALBUMIN 3.9 g/dL (3.5-5.0); ANION GAP 13.1 MEQ/L (5-15); BILIRUBIN,TOTAL 0.6 mg/dL (0.2-1.3); Calcium 8.5 mg/dL (8.4-10.2); Creatinine 1 0.43 mg/dL (0.52-1.04); EST GLOMERULAR FILTRATION RATE 98.3 ML/MIN; Potassium 3.7 mmol/L (3.5-5.1); Total Protein 6.7 g/dL (6.3-8.2)
--- NOTE | 2024-10-21 16:15 | PCM.HP ---
History of Present Illness - Chief Complaint Chief Complaint: UTI/Rhabdo Date: 10/21/24 History of Present Illness: Ms. Snyder is an 79-year-old female with a history of HTN and COPD who presented to the ED 10/21/24 after being found on the floor by a neighbor, for an unknown period of downtime. Patient states the last thing she remembers is trying to get out of bed. She does not report any pain. She endorses a non-productive cough and some mild light headedness. Her neighbor states she seems more confused than normal. Denies fever, sob, cp, abdominal pain, HILL, dizziness, N/V/D. On arrival, she was hemodynamically stable and alert. EKG showed atrial fibrillation with a controlled rate of 86 bpm and no signs of acute ischemia. Chest X-ray, pending final interpretation, showed a right-sided infiltrate concerning for pneumonia. Laboratory evaluation revealed significant rhabdomyolysis (CK >3200 , anion gap metabolic acidosis, mild transaminitis, and a urinary tract infection without leukocytosis. She received a 1L fluid bolus and Ceftriaxone in the ED. Admit for rhabdomyolysis, UTI, and further evaluation/treatment of metabolic acidosis. - Review of Systems Constitutional: Weakness Eyes: No Symptoms Ears, Nose, & Throat: No Symptoms Respiratory: Cough Cardiac: No Symptoms Abdominal/Gastrointestinal: No Symptoms Genitourinary Symptoms: No Symptoms Musculoskeletal: No Symptoms Skin: No Symptoms Neurological: Dizziness Psychological: No Symptoms Endocrine: No Symptoms Hematologic/Lymphatic: No Symptoms Immunological/Allergic: No Symptoms Medications & Allergies Home Medications: Home Medication List ALPRAZolam 1 MG [Xanax 1 mg] 2 mg PO HS 10/08/15 [History Confirmed 10/21/24] Lisinopril 5 mg [Zestril 5 MG] 5 mg PO DAILY 10/21/24 [History Confirmed 10/21/24] Allergies/Adverse Reactions: Allergies Allergy/AdvReac Type Severity Reaction Status Date / Time NKA Allergy Verified 10/21/24 13:10 - Past Medical History Past Medical History: Yes Neurological History: No Pertinent History ENT History: No Pertinent History Cardiac History: No Pertinent History Respiratory History: COPD Endocrine Medical History: No Pertinent History Musculoskelatal History: Arthritis GI Medical History: No Pertinent History History: No Pertinent History Pyscho-Social History: Anxiety Reproductive Disorders: Other Comment: had partial hysterectomy due to dropped uterus and bladder tied up at that time - Past Surgical History Past Surgical History: Yes Neuro Surgical History: No Pertinent History Cardiac History: No Pertinent History Respiratory Surgery: No Pertinent History GI Surgical History: Cholecystectomy Genitourinary Surgical Hx: No Pertinent History, Other Musculskeletal Surgical Hx: Joint Replacement Female Surgical History: Hysterectomy Other Surgical History: partial hysterectomy for uterus dropped and bladder tied up at that time Significant Family History: heart disease - Social History Smoking Status: Never smoker Exposure to second hand smoke: Yes (grandson occasionall) Alcohol: None Drug Use: none - Social Determinants of Health Will the patient participate in the screening: Yes Do you worry about a steady place to live?: No Do you have any problems with any of the following?: No known problems In the past 12 months,have you had to go without utilities?: No Have you or anyone in your house had to go without enough: No Transportation Issues: No Has anyone in your support network made you feel unsafe?: No - Physical Exam Vital Signs: Vital Signs - 24 hr Temp Pulse Resp BP Pulse Ox 10/21/24 15:31 98.4 F 93 H 23 92/58 97 10/21/24 15:16 75 23 113/51 95 10/21/24 15:01 87 19 123/74 96 10/21/24 14:46 67 17 124/81 98 10/21/24 14:31 98.4 F 70 26 H 130/79 99 10/21/24 14:30 67 24 98 10/21/24 14:20 70 36 H 97 10/21/24 14:17 64 37 H 10/21/24 14:02 67 25 H 130/78 10/21/24 13:46 67 28 H 148/76 96 10/21/24 13:31 87 25 H 148/99 93 L 10/21/24 13:21 83 19 161/92 96 10/21/24 13:20 82 21 10/21/24 13:10 85 21 94 L 10/21/24 13:02 97 H 21 10/21/24 12:52 94 H 25 H 90/69 94 L 10/21/24 12:50 102 H 23 10/21/24 12:40 107 H 21 10/21/24 12:32 89 20 10/21/24 12:22 92 H 23 102/65 10/21/24 12:21 98 H 24 10/21/24 12:20 97.8 F 96 General Appearance: no apparent distress Neurologic Exam: alert, oriented x 3, cooperative Ears, Nose, Throat Exam: normal ENT inspection Neck Exam: normal inspection Respiratory Exam: diminished breath sounds Cardiovascular Exam: irregular Pelvic Exam: not done Rectal Exam: deferred Back Exam: normal inspection Skin Exam: other (excoriation under bilateral breast/groin) Results - Labs Lab/Micro Results: Lab Results-Last 24 Hours 10/21/24 10/21/24 10/21/24 Range/Units 12:15 12:15 12:15 WBC 8.0 (3.98-10.04) x10^3/uL RBC 5.11 (3.93-5.22) x10^6/uL Hgb 15.5 (11.2-15.7) g/dL Hct 51.0 H (34.1-44.9) % MCV 99.8 H (79.4-94.8) fL MCH 30.3 (25.6-32.2) pg MCHC 30.4 L (32.2-35.5) g/dL RDW 13.6 (11.7-14.4) % Plt Count 129 L (182-369) x10^3/uL MPV 10.9 (9.4-12.3) fL Gran % 78.6 H (34.0-71.1) % Immature Gran % (Auto) 0.2 (0.001-0.429) % Nucleat RBC Rel Count 0.0 (0.00-0.2) % Eos # (Auto) 0 L (0.04-0.36) x10^3/uL Immature Gran # (Auto) 0.02 (0.001-0.031) x10^3u/L Absolute Lymphs (auto) 0.78 L (1.18-3.74) x10^3/uL Absolute Monos (auto) 0.91 H (0.24-0.86) x10^3/uL Absolute Nucleated RBC 0.00 (0.00-0.012) x10^3u/L Lymphocytes % 9.7 L (19.3-51.7) % Monocytes % 11.3 (4.7-12.5) % Eosinophils % 0.0 L (0.7-5.8) % Basophils % 0.2 (0.1-1.2) % Absolute Granulocytes 6.31 H (1.56-6.13) x10^3/uL Basophils # 0.02 (0.01-0.08) x10^3/uL Puncture Site pCO2 (35-45) mmHg pO2 (75-100) mmHg Base Excess (-2.0-2.0) O2 Saturation (94-100) g/dF ABG pH (7.35-7.45) ABG HCO3 (22-28) ABG O2 Sat (Measured) (95-100) % Randall Test A-a Gradient a/A Ratio Hemoglobin Carboxyhemoglobin (0.0-6.9) % THgb Methemoglobin (1.4-1.5) % Temperature C POC O2 Flow Rate % Sodium 141 (135-145) mmol/L Potassium 3.8 (3.5-5.1) mmol/L Chloride 108 H (98-107) mmol/L Carbon Dioxide 16 L* (22-30) mmol/L Anion Gap 21.6 H (5-15) MEQ/L BUN 14 (7-17) mg/dL Creatinine 0.50 L (0.52-1.04) mg/dL Estimated GFR 94.8 ML/MIN Glucose 110 H (74-106) mg/dL Lactic Acid (0.4-2.0) Calcium 9.2 (8.4-10.2) mg/dL Total Bilirubin 0.70 (0.2-1.3) mg/dL AST 98 H (14-36) U/L ALT 47 H (0-35) U/L Alkaline Phosphatase 94 (38-126) U/L Ammonia (9-30) umol/L Creatine Kinase > 3200 H (30-135) U/L Troponin I 0.022 (0.000-0.033) ng/mL Serum Total Protein 7.4 (6.3-8.2) g/dL Albumin 4.4 (3.5-5.0) g/dL Free T4 (0.78-2.19) ng/dL TSH 3rd Generation 1.765 (0.470-4.680) mIU/L Urine Color (Yellow) Urine Appearance (Clear) Urine pH (4.6-8.0) Ur Specific Start (1.005-1.030) Urine Protein (Negative) Urine Glucose (UA) (Negative) mg/dL Urine Ketones (Negative) Urine Blood (Negative) Urine Nitrite (Negative) Urine Bilirubin (Negative) Urine Urobilinogen (0.2) mg/dL Ur Leukocyte Esterase (Negative) U Hyaline Cast (Auto) (0-2) /LPF Urine Microscopic RBC (0-5) /HPF Urine Microscopic WBC (0-5) /HPF Ur Epithelial Cells (None Seen) /HPF Urine Bacteria (None Seen) /HPF Urine Culture Reflexed (NO) 10/21/24 10/21/24 10/21/24 Range/Units 12:15 12:51 14:29 WBC (3.98-10.04) x10^3/uL RBC (3.93-5.22) x10^6/uL Hgb (11.2-15.7) g/dL Hct (34.1-44.9) % MCV (79.4-94.8) fL MCH (25.6-32.2) pg MCHC (32.2-35.5) g/dL RDW (11.7-14.4) % Plt Count (182-369) x10^3/uL MPV (9.4-12.3) fL Gran % (34.0-71.1) % Immature Gran % (Auto) (0.001-0.429) % Nucleat RBC Rel Count (0.00-0.2) % Eos # (Auto) (0.04-0.36) x10^3/uL Immature Gran # (Auto) (0.001-0.031) x10^3u/L Absolute Lymphs (auto) (1.18-3.74) x10^3/uL Absolute Monos (auto) (0.24-0.86) x10^3/uL Absolute Nucleated RBC (0.00-0.012) x10^3u/L Lymphocytes % (19.3-51.7) % Monocytes % (4.7-12.5) % Eosinophils % (0.7-5.8) % Basophils % (0.1-1.2) % Absolute Granulocytes (1.56-6.13) x10^3/uL Basophils # (0.01-0.08) x10^3/uL Puncture Site Pending pCO2 35 (35-45) mmHg pO2 130 H* (75-100) mmHg Base Excess -3.7 L (-2.0-2.0) O2 Saturation 97.6 (94-100) g/dF ABG pH 7.38 (7.35-7.45) ABG HCO3 20.7 L (22-28) ABG O2 Sat (Measured) 99.8 (95-100) % Randall Test Pending A-a Gradient 54 a/A Ratio 0.71 Hemoglobin 15.0 Carboxyhemoglobin 1.3 (0.0-6.9) % THgb Methemoglobin 0.8 L (1.4-1.5) % Temperature 37.0 C POC O2 Flow Rate 32 % Sodium (135-145) mmol/L Potassium 3.7 (3.5-5.1) mmol/L Chloride (98-107) mmol/L Carbon Dioxide (22-30) mmol/L Anion Gap (5-15) MEQ/L BUN (7-17) mg/dL Creatinine (0.52-1.04) mg/dL Estimated GFR ML/MIN Glucose (74-106) mg/dL Lactic Acid (0.4-2.0) Calcium (8.4-10.2) mg/dL Total Bilirubin (0.2-1.3) mg/dL AST (14-36) U/L ALT (0-35) U/L Alkaline Phosphatase (38-126) U/L Ammonia (9-30) umol/L Creatine Kinase (30-135) U/L Troponin I (0.000-0.033) ng/mL Serum Total Protein (6.3-8.2) g/dL Albumin (3.5-5.0) g/dL Free T4 1.00 (0.78-2.19) ng/dL TSH 3rd Generation (0.470-4.680) mIU/L Urine Color Dark Yellow A (Yellow) Urine Appearance Cloudy A (Clear) Urine pH 5.0 (4.6-8.0) Ur Specific Start 1.025 (1.005-1.030) Urine Protein 100 A (Negative) Urine Glucose (UA) Negative (Negative) mg/dL Urine Ketones Trace A (Negative) Urine Blood Large A (Negative) Urine Nitrite Positive A (Negative) Urine Bilirubin Negative (Negative) Urine Urobilinogen 0.2 (0.2) mg/dL Ur Leukocyte Esterase Negative (Negative) U Hyaline Cast (Auto) 3-5 A (0-2) /LPF Urine Microscopic RBC 6-10 A (0-5) /HPF Urine Microscopic WBC 6-10 A (0-5) /HPF Ur Epithelial Cells Moderate A (None Seen) /HPF Urine Bacteria Many A (None Seen) /HPF Urine Culture Reflexed ORDERED SEPARATELY (NO) 10/21/24 10/21/24 Range/Units 14:32 15:35 WBC (3.98-10.04) x10^3/uL RBC (3.93-5.22) x10^6/uL Hgb (11.2-15.7) g/dL Hct (34.1-44.9) % MCV (79.4-94.8) fL MCH (25.6-32.2) pg MCHC (32.2-35.5) g/dL RDW (11.7-14.4) % Plt Count (182-369) x10^3/uL MPV (9.4-12.3) fL Gran % (34.0-71.1) % Immature Gran % (Auto) (0.001-0.429) % Nucleat RBC Rel Count (0.00-0.2) % Eos # (Auto) (0.04-0.36) x10^3/uL Immature Gran # (Auto) (0.001-0.031) x10^3u/L Absolute Lymphs (auto) (1.18-3.74) x10^3/uL Absolute Monos (auto) (0.24-0.86) x10^3/uL Absolute Nucleated RBC (0.00-0.012) x10^3u/L Lymphocytes % (19.3-51.7) % Monocytes % (4.7-12.5) % Eosinophils % (0.7-5.8) % Basophils % (0.1-1.2) % Absolute Granulocytes (1.56-6.13) x10^3/uL Basophils # (0.01-0.08) x10^3/uL Puncture Site pCO2 (35-45) mmHg pO2 (75-100) mmHg Base Excess (-2.0-2.0) O2 Saturation (94-100) g/dF ABG pH (7.35-7.45) ABG HCO3 (22-28) ABG O2 Sat (Measured) (95-100) % Randall Test A-a Gradient a/A Ratio Hemoglobin Carboxyhemoglobin (0.0-6.9) % THgb Methemoglobin (1.4-1.5) % Temperature C POC O2 Flow Rate % Sodium (135-145) mmol/L Potassium (3.5-5.1) mmol/L Chloride (98-107) mmol/L Carbon Dioxide (22-30) mmol/L Anion Gap (5-15) MEQ/L BUN (7-17) mg/dL Creatinine (0.52-1.04) mg/dL Estimated GFR ML/MIN Glucose (74-106) mg/dL Lactic Acid 2.0 (0.4-2.0) Calcium (8.4-10.2) mg/dL Total Bilirubin (0.2-1.3) mg/dL AST (14-36) U/L ALT (0-35) U/L Alkaline Phosphatase (38-126) U/L Ammonia < 9 L (9-30) umol/L Creatine Kinase (30-135) U/L Troponin I (0.000-0.033) ng/mL Serum Total Protein (6.3-8.2) g/dL Albumin (3.5-5.0) g/dL Free T4 (0.78-2.19) ng/dL TSH 3rd Generation (0.470-4.680) mIU/L Urine Color (Yellow) Urine Appearance (Clear) Urine pH (4.6-8.0) Ur Specific Start (1.005-1.030) Urine Protein (Negative) Urine Glucose (UA) (Negative) mg/dL Urine Ketones (Negative) Urine Blood (Negative) Urine Nitrite (Negative) Urine Bilirubin (Negative) Urine Urobilinogen (0.2) mg/dL Ur Leukocyte Esterase (Negative) U Hyaline Cast (Auto) (0-2) /LPF Urine Microscopic RBC (0-5) /HPF Urine Microscopic WBC (0-5) /HPF Ur Epithelial Cells (None Seen) /HPF Urine Bacteria (None Seen) /HPF Urine Culture Reflexed (NO) - Radiology Impressions Radiology Exams & Impressions: Radiology Procedures Category Date Time Status CHEST 1 VIEW (PORTABLE) Stat Exams 10/21/24 13:22 Taken Assessment/Plan (1) UTI (urinary tract infection) Current Visit: Yes Status: Acute Assessment & Plan: -UA suspicious for UTI, treated with ceftriaxone in ED - will continue Code(s): N39.0 - URINARY TRACT INFECTION, SITE NOT SPECIFIED (2) Rhabdomyolysis Current Visit: Yes Status: Acute Assessment & Plan: -CPK reviewed and > 3200 -trend -Found on the floor- unknown period of time -Continue IVF -Monitor renal function and for fluid overload Code(s): M62.82 - RHABDOMYOLYSIS (3) High anion gap metabolic acidosis Current Visit: Yes Status: Acute Assessment & Plan: -CMP reviewed -repeat -Likely multifactorial with dehydration/rhabdo, infection -Continue IVF -BMP Q4H -Sodium bicarb drip -continue treatment for UTI as stated above Code(s): E87.29 - OTHER ACIDOSIS (4) Elevated LFTs Current Visit: Yes Status: Acute Assessment & Plan: -Most likely reactive secondary to rhabdo -trend Code(s): R79.89 - OTHER SPECIFIED ABNORMAL FINDINGS OF BLOOD CHEMISTRY (5) Infiltrate noted on imaging study Current Visit: Yes Status: Acute Assessment & Plan: -CXR pending final read - continue ceftriaxone- add azithromycin -IS -Supplemental oxygen with goal spo2 > 90% -RT eval -Nebs prn Code(s): R93.89 - ABNORMAL FINDINGS ON DX IMAGING OF OTH BODY STRUCTURES (6) COPD (chronic obstructive pulmonary disease) Current Visit: Yes Status: Acute Assessment & Plan: -see infiltrate above for plan (7) HTN (hypertension) Current Visit: Yes Status: Acute Assessment & Plan: -BP soft - hold BP meds for now - monitor closely Code(s): I10 - ESSENTIAL (PRIMARY) HYPERTENSION (8) Fall Current Visit: Yes Status: Acute Assessment & Plan: -Likely secondary to UTI/infection -Continue IVF -Pain control -PT/OT evaluation -Unknown if LOC or head trauma - will obtain CT head w/o contrast VTE: SCD until after head CT PPI: protonix Dispo: 2-3 days Code status: Full Code Code(s): W19.XXXA - UNSPECIFIED FALL, INITIAL ENCOUNTER Telemedicine Encounter - Telemedicine Encounter Telemedicine Encounter: "The entirety of this encounter was performed via Telemedicine" This visit was performed using real-time audio and video connection between my location and thepatients locationwith the assistance of a surrogateat the patients location. Written or verbal consent was obtained from the patient/guardian to perform this visit usingsynchronoustelemedicine technology. Any patient questions regarding the telemedicine interaction were answered.
[2024-10-21] MEDS: DUONEB 0.5-3 MG/3 ml Neb IH PRN (17:13)
[2024-10-21] MEDS ORDERED: NYSTOP 30 GM CREAM ONE (17:28)
--- NOTE | 2024-10-21 17:28 | XRAY ---
CLINICAL HISTORY: Fall confusion COMPARISON: CT dated 01/19/2024. TECHNIQUE: An axial non-contrast CT scan of the brain was performed from the skull base to the high parietal region. One of the following dose reduction techniques were utilized for this exam: Automated exposure control, adjustment of the mA and/or kV according to patient size, use of iterative reconstruction. DLP: 1112.1 mGy-cm, CTDI: 53.92 mGy. FINDINGS: Mild symmetrical dilatation of the supratentorial ventricles. Deepening of the cortical sulci, basal cisterns and sylvian fissures. Normal CT features of the basal ganglia, internal capsules and thalami. Diffuse ill-defined hypodensity is seen in the periventricular white matter suggesting atherosclerotic leukoencephalopathy. No shift of midline structures detected. No intra or extra-axial collections. Normal posterior fossa structures. Right maxillary sinusitis IMPRESSION: 1. No acute territorial infarction, hemorrhagic pathology 2. Generalized involutional changes with chronic microvascular ischemic changes. Stable. 3. Early changes of acute ischemic infarct may sometimes not be detected on a CT scan. If clinically suspicious, MRI with diffusion-weighted imaging may be recommended for further evaluation. The report was ready at 04:16 PM DESKIDDING MACHINE OPERATOR, 10/21/2024 and the call was completed at at 04:20 PM DESKIDDING MACHINE OPERATOR, 10/21/2024 and Ania Donovan, Nurse, was informed regarding the Negative stroke results. Electronically Signed by: Dhaval Ortiz MD. (10/21/2024 17:23:49 EDT)
[2024-10-21] MEDS: Sodium Chloride 0.9% 1000 ML 1,000 ML IV SCH (17:37)
--- NOTE | 2024-10-21 17:42 | XRAY ---
CLINICAL HISTORY: left knee pain fall COMPARISON: 01/19/2024. TECHNIQUE: X-ray images of the left knee were obtained in anteroposterior (AP), lateral, and oblique projections. FINDINGS: Bone Structure: Evidence of total knee replacement. No evidence of prosthesis loosening, break, or chronic osteomyelitis. A subtle lucent line is seen at the medial tibial plateau. Patella: Patella is normal in position and alignment. No evidence of patellar dislocation or subluxation. Mild sclerotic changes of the patella with subchondral lucency. Soft Tissues: Periarticular soft tissues appear normal and unremarkable. No soft tissue swelling, calcifications, or foreign bodies noted. IMPRESSION: 1. Evidence of total knee replacement. new finding. 2. No evidence of prosthesis loosening, break, or chronic osteomyelitis. 3. A subtle lucent line is seen at the medial tibial plateau. (new finding) , possibly non-displaced fracture/marrow contusion, please correlate with the maximum point of tenderness. 4. Mild sclerotic changes of the patella with subchondral lucency. 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 (new finding). Disclaimer: A subtle bone abnormality or fracture may not be readily apparent on X-rays, thus clinical correlation and further imaging including follow-up CT, MRI, or follow-up X-rays are advised as needed Electronically Signed by: Dhaval Ortiz MD. (10/21/2024 17:38:45 EDT)
[2024-10-21 18:18] LABS: INFLUENZA A NEGATIVE (NEGATIVE); INFLUENZA B NEGATIVE (NEGATIVE); RESPIRATORY SYNCTIAL VIRUS NEGATIVE (NEGATIVE)
[2024-10-21 18:23] LABS: SARS-CoV-2 Xpert Express POSITIVE (NEGATIVE)
[2024-10-21] MEDS ORDERED: Hydromorphone 1 mg/ml Injection IV PRN (19:01)
[2024-10-21] MEDS ORDERED: VENTOLIN COMMON CANISTER IH PRN (19:01)
[2024-10-21] MEDS ORDERED: TYLENOL 325 MG PO PRN (19:01)
--- NOTE | 2024-10-21 20:20 | XRAY ---
Indication: Cough. Comparison: January 19, 2024 PA/lateral chest now demonstrates mild right base infiltrate/atelectasis without consolidation/large effusion. Heart not enlarged. Bony thorax intact again with osteopenia and degenerative changes.
[2024-10-21] MEDS ORDERED: ENOXAPARIN SODIUM SQ ONE (20:50)
[2024-10-21] MEDS ORDERED: Sodium Chloride 0.9% 250 ML 250 ML IV ONE (20:53)
[2024-10-21] MEDS ORDERED: REMDESIVIR IV ONE (20:53)
[2024-10-21] MEDS: REMDESIVIR 200 MG in Sodium Chloride 0.9% 250 ML 250 ML IV ONE (21:08)
[2024-10-21] MEDS: ENOXAPARIN SODIUM SQ SCH (21:16)
[2024-10-21] MEDS: ZITHROMAX IV*** 500 MG in Sodium Chloride 0.9% 250 ML 250 ML IV SCH (22:52)
[2024-10-21] MEDS: Robitussin AC Syrup Unit Dose Cup PO PRN (22:56)
[2024-10-21] MEDS: NYSTOP 30 GM CREAM TOP SCH (23:01)
[2024-10-22 05:35] LABS: ABG SITE RRA; ALLEN TEST OK? YES
[2024-10-22 05:45] LABS: BASOPHIL % 0.2 % (0.1-1.2); Basophil (Absolute #) 0.01 x10^3/uL (0.01-0.08); Eosinophil % 0.4 % (0.7-5.8); Eosinophil (Absolute #) 0.02 x10^3/uL (0.04-0.36); Hematocrit 45.1 % (34.1-44.9); Hemoglobin 13.8 g/dL (11.2-15.7); IMMATURE GRAN # 0.01 x10^3u/L (0.001-0.031); IMMATURE GRAN % 0.2 % (0.001-0.429); Lymphocytes % 35.6 % (19.3-51.7); Mean Cell Volume 99.1 fL (79.4-94.8); Mean Corpuscular Hemoglobin 30.3 pg (25.6-32.2); Mean Corpuscular Hgb Concent. 30.6 g/dL (32.2-35.5); Mean Platelet Volume 9.6 fL (9.4-12.3); Monocytes % 11.2 % (4.7-12.5); Neutrophil % 52.4 % (34.0-71.1); Platelet Count 131 x10^3/uL (182-369); Red Blood Count 4.55 x10^6/uL (3.93-5.22); Red Cell Distribution Width 14.1 % (11.7-14.4); White Blood Count 5.3 x10^3/uL (3.98-10.04)
[2024-10-22 06:04] LABS: ANION GAP 8.8 MEQ/L (5-15); BILIRUBIN,TOTAL 0.3 mg/dL (0.2-1.3); Calcium 8.2 mg/dL (8.4-10.2); Creatinine 1 0.55 mg/dL (0.52-1.04); EST GLOMERULAR FILTRATION RATE 92.6 ML/MIN; Potassium 3.2 mmol/L (3.5-5.1); Total Protein 5.4 g/dL (6.3-8.2)
--- NOTE | 2024-10-22 09:42 | PCM.NOTE ---
Date and Time: 10/22/24907 Subjective Assessment: Ms. Snyder is an 79-year-old female with a history of HTN and COPD who presented to the ED 10/21/24 after being found on the floor by a neighbor, for an unknown period of downtime. Patient states the last thing she remembers is trying to get out of bed. She does not report any pain. She endorses a non-productive cough and some mild light headedness. Her neighbor states she seems more confused than normal. Denies fever, sob, cp, abdominal pain, HILL, dizziness, N/V/D. On arrival, she was hemodynamically stable and alert. EKG showed atrial fibrillation with a controlled rate of 86 bpm and no signs of acute ischemia. Chest X-ray, pending final interpretation, showed a right-sided infiltrate concerning for pneumonia. Laboratory evaluation revealed significant rhabdomyolysis (CK >3200 , anion gap metabolic acidosis, mild transaminitis, and a urinary tract infection without leukocytosis. She received a 1L fluid bolus and Ceftriaxone in the ED. Admit for rhabdomyolysis, UTI, and further evaluation/treatment of metabolic acidosis. Objective Data Vital Signs: Vital Signs - 24 hr Temp Pulse Resp BP BP Pulse Ox 10/22/24 08:00 98.0 F 85 15 113/72 97 10/22/24 04:00 98.5 F 87 18 117/78 95 10/22/24 02:02 88 16 97 10/21/24 23:49 98.3 F 71 20 96/54 96 10/21/24 19:06 97.6 F 83 18 109/56 95 10/21/24 17:20 98.2 F 79 19 122/78 96 10/21/24 17:15 97 10/21/24 15:31 98.4 F 93 H 23 92/58 97 10/21/24 15:16 75 23 113/51 95 10/21/24 15:01 87 19 123/74 96 10/21/24 14:46 67 17 124/81 98 10/21/24 14:31 98.4 F 70 26 H 130/79 99 10/21/24 14:30 67 24 98 10/21/24 14:20 70 36 H 97 10/21/24 14:17 64 37 H 10/21/24 14:02 67 25 H 130/78 10/21/24 13:46 67 28 H 148/76 96 10/21/24 13:31 87 25 H 148/99 93 L 10/21/24 13:21 83 19 161/92 96 10/21/24 13:20 82 21 10/21/24 13:10 85 21 94 L 10/21/24 13:02 97 H 21 10/21/24 12:52 94 H 25 H 90/69 94 L 10/21/24 12:50 102 H 23 10/21/24 12:40 107 H 10/21/24 12:32 89 20 10/21/24 12:22 92 H 23 102/65 10/21/24 12:21 98 H 24 10/21/24 12:20 97.8 F 96 Pain Assessment - Last Documented Pain Intensity 2 Intake and Output: Intake & Output 10/19/24 10/20/24 10/21/24 10/22/24 11:59 11:59 11:59 11:59 Intake Total 3291 Output Total 200 Balance 3091 Weight 82.9 kg Lab Results: Lab Results-Last 24 Hours 10/21/24 10/21/24 10/21/24 Range/Units 12:15 12:15 12:15 WBC 8.0 (3.98-10.04) x10^3/uL RBC 5.11 (3.93-5.22) x10^6/uL Hgb 15.5 (11.2-15.7) g/dL Hct 51.0 H (34.1-44.9) % MCV 99.8 H (79.4-94.8) fL MCH 30.3 (25.6-32.2) pg MCHC 30.4 L (32.2-35.5) g/dL RDW 13.6 (11.7-14.4) % Plt Count 129 L (182-369) x10^3/uL MPV 10.9 (9.4-12.3) fL Gran % 78.6 H (34.0-71.1) % Immature Gran % (Auto) 0.2 (0.001-0.429) % Nucleat RBC Rel Count 0.0 (0.00-0.2) % Eos # (Auto) 0 L (0.04-0.36) x10^3/uL Immature Gran # (Auto) 0.02 (0.001-0.031) x10^3u/L Absolute Lymphs (auto) 0.78 L (1.18-3.74) x10^3/uL Absolute Monos (auto) 0.91 H (0.24-0.86) x10^3/uL Absolute Nucleated RBC 0.00 (0.00-0.012) x10^3u/L Lymphocytes % 9.7 L (19.3-51.7) % Monocytes % 11.3 (4.7-12.5) % Eosinophils % 0.0 L (0.7-5.8) % Basophils % 0.2 (0.1-1.2) % Absolute Granulocytes 6.31 H (1.56-6.13) x10^3/uL Basophils # 0.02 (0.01-0.08) x10^3/uL D-Dimer (0.0-0.50) mg/L Puncture Site pCO2 (35-45) mmHg pO2 (75-100) mmHg Base Excess (-2.0-2.0) O2 Saturation (94-100) g/dF ABG pH (7.35-7.45) ABG HCO3 (22-28) ABG O2 Sat (Measured) (95-100) % Randall Test A-a Gradient a/A Ratio Hemoglobin Carboxyhemoglobin (0.0-6.9) % THgb Methemoglobin (1.4-1.5) % Temperature C POC O2 Flow Rate % Sodium 141 (135-145) mmol/L Potassium 3.8 (3.5-5.1) mmol/L Chloride 108 H (98-107) mmol/L Carbon Dioxide 16 L* (22-30) mmol/L Anion Gap 21.6 H (5-15) MEQ/L BUN 14 (7-17) mg/dL Creatinine 0.50 L (0.52-1.04) mg/dL Estimated GFR 94.8 ML/MIN Glucose 110 H (74-106) mg/dL Lactic Acid (0.4-2.0) Calcium 9.2 (8.4-10.2) mg/dL Magnesium (1.6-2.3) mg/dL Total Bilirubin 0.70 (0.2-1.3) mg/dL AST 98 H (14-36) U/L ALT 47 H (0-35) U/L Alkaline Phosphatase 94 (38-126) U/L Ammonia (9-30) umol/L Creatine Kinase > 3200 H (30-135) U/L Troponin I 0.022 (0.000-0.033) ng/mL Serum Total Protein 7.4 (6.3-8.2) g/dL Albumin 4.4 (3.5-5.0) g/dL Procalcitonin (0.030-0.080) ng/mL Free T4 (0.78-2.19) ng/dL TSH 3rd Generation 1.765 (0.470-4.680) mIU/L Urine Color (Yellow) Urine Appearance (Clear) Urine pH (4.6-8.0) Ur Specific [place] (1.005-1.030) Urine Protein (Negative) Urine Glucose (UA) (Negative) mg/dL Urine Ketones (Negative) Urine Blood (Negative) Urine Nitrite (Negative) Urine Bilirubin (Negative) Urine Urobilinogen (0.2) mg/dL Ur Leukocyte Esterase (Negative) U Hyaline Cast (Auto) (0-2) /LPF Urine Microscopic RBC (0-5) /HPF Urine Microscopic WBC (0-5) /HPF Ur Epithelial Cells (None Seen) /HPF Urine Bacteria (None Seen) /HPF Urine Culture Reflexed (NO) Influenza Type A Ag (NEGATIVE) Influenza Type B Ag (NEGATIVE) RSV (PCR) (NEGATIVE) SARS-CoV-2 (PCR) (NEGATIVE) 10/21/24 10/21/24 10/21/24 Range/Units 12:15 12:51 14:29 WBC (3.98-10.04) x10^3/uL RBC (3.93-5.22) x10^6/uL Hgb (11.2-15.7) g/dL Hct (34.1-44.9) % MCV (79.4-94.8) fL MCH (25.6-32.2) pg MCHC (32.2-35.5) g/dL RDW (11.7-14.4) % Plt Count (182-369) x10^3/uL MPV (9.4-12.3) fL Gran % (34.0-71.1) % Immature Gran % (Auto) (0.001-0.429) % Nucleat RBC Rel Count (0.00-0.2) % Eos # (Auto) (0.04-0.36) x10^3/uL Immature Gran # (Auto) (0.001-0.031) x10^3u/L Absolute Lymphs (auto) (1.18-3.74) x10^3/uL Absolute Monos (auto) (0.24-0.86) x10^3/uL Absolute Nucleated RBC (0.00-0.012) x10^3u/L Lymphocytes % (19.3-51.7) % Monocytes % (4.7-12.5) % Eosinophils % (0.7-5.8) % Basophils % (0.1-1.2) % Absolute Granulocytes (1.56-6.13) x10^3/uL Basophils # (0.01-0.08) x10^3/uL D-Dimer (0.0-0.50) mg/L Puncture Site RRA pCO2 35 (35-45) mmHg pO2 130 H* (75-100) mmHg Base Excess -3.7 L (-2.0-2.0) O2 Saturation 97.6 (94-100) g/dF ABG pH 7.38 (7.35-7.45) ABG HCO3 20.7 L (22-28) ABG O2 Sat (Measured) 99.8 (95-100) % Randall Test YES A-a Gradient 54 a/A Ratio 0.71 Hemoglobin 15.0 Carboxyhemoglobin 1.3 (0.0-6.9) % THgb Methemoglobin 0.8 L (1.4-1.5) % Temperature 37.0 C POC O2 Flow Rate 32 % Sodium (135-145) mmol/L Potassium 3.7 (3.5-5.1) mmol/L Chloride (98-107) mmol/L Carbon Dioxide (22-30) mmol/L Anion Gap (5-15) MEQ/L BUN (7-17) mg/dL Creatinine (0.52-1.04) mg/dL Estimated GFR ML/MIN Glucose (74-106) mg/dL Lactic Acid (0.4-2.0) Calcium (8.4-10.2) mg/dL Magnesium (1.6-2.3) mg/dL Total Bilirubin (0.2-1.3) mg/dL AST (14-36) U/L ALT (0-35) U/L Alkaline Phosphatase (38-126) U/L Ammonia (9-30) umol/L Creatine Kinase (30-135) U/L Troponin I (0.000-0.033) ng/mL Serum Total Protein (6.3-8.2) g/dL Albumin (3.5-5.0) g/dL Procalcitonin (0.030-0.080) ng/mL Free T4 1.00 (0.78-2.19) ng/dL TSH 3rd Generation (0.470-4.680) mIU/L Urine Color Dark Yellow A (Yellow) Urine Appearance Cloudy A (Clear) Urine pH 5.0 (4.6-8.0) Ur Specific [place] 1.025 (1.005-1.030) Urine Protein 100 A (Negative) Urine Glucose (UA) Negative (Negative) mg/dL Urine Ketones Trace A (Negative) Urine Blood Large A (Negative) Urine Nitrite Positive A (Negative) Urine Bilirubin Negative (Negative) Urine Urobilinogen 0.2 (0.2) mg/dL Ur Leukocyte Esterase Negative (Negative) U Hyaline Cast (Auto) 3-5 A (0-2) /LPF Urine Microscopic RBC 6-10 A (0-5) /HPF Urine Microscopic WBC 6-10 A (0-5) /HPF Ur Epithelial Cells Moderate A (None Seen) /HPF Urine Bacteria Many A (None Seen) /HPF Urine Culture Reflexed ORDERED SEPARATELY (NO) Influenza Type A Ag (NEGATIVE) Influenza Type B Ag (NEGATIVE) RSV (PCR) (NEGATIVE) SARS-CoV-2 (PCR) (NEGATIVE) 10/21/24 10/21/24 10/21/24 Range/Units 14:32 15:14 15:20 WBC (3.98-10.04) x10^3/uL RBC (3.93-5.22) x10^6/uL Hgb (11.2-15.7) g/dL Hct (34.1-44.9) % MCV (79.4-94.8) fL MCH (25.6-32.2) pg MCHC (32.2-35.5) g/dL RDW (11.7-14.4) % Plt Count (182-369) x10^3/uL MPV (9.4-12.3) fL Gran % (34.0-71.1) % Immature Gran % (Auto) (0.001-0.429) % Nucleat RBC Rel Count (0.00-0.2) % Eos # (Auto) (0.04-0.36) x10^3/uL Immature Gran # (Auto) (0.001-0.031) x10^3u/L Absolute Lymphs (auto) (1.18-3.74) x10^3/uL Absolute Monos (auto) (0.24-0.86) x10^3/uL Absolute Nucleated RBC (0.00-0.012) x10^3u/L Lymphocytes % (19.3-51.7) % Monocytes % (4.7-12.5) % Eosinophils % (0.7-5.8) % Basophils % (0.1-1.2) % Absolute Granulocytes (1.56-6.13) x10^3/uL Basophils # (0.01-0.08) x10^3/uL D-Dimer 0.76 H* (0.0-0.50) mg/L Puncture Site pCO2 (35-45) mmHg pO2 (75-100) mmHg Base Excess (-2.0-2.0) O2 Saturation (94-100) g/dF ABG pH (7.35-7.45) ABG HCO3 (22-28) ABG O2 Sat (Measured) (95-100) % Randall Test A-a Gradient a/A Ratio Hemoglobin Carboxyhemoglobin (0.0-6.9) % THgb Methemoglobin (1.4-1.5) % Temperature C POC O2 Flow Rate % Sodium (135-145) mmol/L Potassium (3.5-5.1) mmol/L Chloride (98-107) mmol/L Carbon Dioxide (22-30) mmol/L Anion Gap (5-15) MEQ/L BUN (7-17) mg/dL Creatinine (0.52-1.04) mg/dL Estimated GFR ML/MIN Glucose (74-106) mg/dL Lactic Acid 2.0 (0.4-2.0) Calcium (8.4-10.2) mg/dL Magnesium 1.8 (1.6-2.3) mg/dL Total Bilirubin (0.2-1.3) mg/dL AST (14-36) U/L ALT (0-35) U/L Alkaline Phosphatase (38-126) U/L Ammonia (9-30) umol/L Creatine Kinase (30-135) U/L Troponin I (0.000-0.033) ng/mL Serum Total Protein (6.3-8.2) g/dL Albumin (3.5-5.0) g/dL Procalcitonin (0.030-0.080) ng/mL Free T4 (0.78-2.19) ng/dL TSH 3rd Generation (0.470-4.680) mIU/L Urine Color (Yellow) Urine Appearance (Clear) Urine pH (4.6-8.0) Ur Specific [place] (1.005-1.030) Urine Protein (Negative) Urine Glucose (UA) (Negative) mg/dL Urine Ketones (Negative) Urine Blood (Negative) Urine Nitrite (Negative) Urine Bilirubin (Negative) Urine Urobilinogen (0.2) mg/dL Ur Leukocyte Esterase (Negative) U Hyaline Cast (Auto) (0-2) /LPF Urine Microscopic RBC (0-5) /HPF Urine Microscopic WBC (0-5) /HPF Ur Epithelial Cells (None Seen) /HPF Urine Bacteria (None Seen) /HPF Urine Culture Reflexed (NO) Influenza Type A Ag (NEGATIVE) Influenza Type B Ag (NEGATIVE) RSV (PCR) (NEGATIVE) SARS-CoV-2 (PCR) (NEGATIVE) 10/21/24 10/21/24 10/21/24 Range/Units 15:35 15:35 15:35 WBC (3.98-10.04) x10^3/uL RBC (3.93-5.22) x10^6/uL Hgb (11.2-15.7) g/dL Hct (34.1-44.9) % MCV (79.4-94.8) fL MCH (25.6-32.2) pg MCHC (32.2-35.5) g/dL RDW (11.7-14.4) % Plt Count (182-369) x10^3/uL MPV (9.4-12.3) fL Gran % (34.0-71.1) % Immature Gran % (Auto) (0.001-0.429) % Nucleat RBC Rel Count (0.00-0.2) % Eos # (Auto) (0.04-0.36) x10^3/uL Immature Gran # (Auto) (0.001-0.031) x10^3u/L Absolute Lymphs (auto) (1.18-3.74) x10^3/uL Absolute Monos (auto) (0.24-0.86) x10^3/uL Absolute Nucleated RBC (0.00-0.012) x10^3u/L Lymphocytes % (19.3-51.7) % Monocytes % (4.7-12.5) % Eosinophils % (0.7-5.8) % Basophils % (0.1-1.2) % Absolute Granulocytes (1.56-6.13) x10^3/uL Basophils # (0.01-0.08) x10^3/uL D-Dimer (0.0-0.50) mg/L Puncture Site pCO2 (35-45) mmHg pO2 (75-100) mmHg Base Excess (-2.0-2.0) O2 Saturation (94-100) g/dF ABG pH (7.35-7.45) ABG HCO3 (22-28) ABG O2 Sat (Measured) (95-100) % Randall Test A-a Gradient a/A Ratio Hemoglobin Carboxyhemoglobin (0.0-6.9) % THgb Methemoglobin (1.4-1.5) % Temperature C POC O2 Flow Rate % Sodium 139 (135-145) mmol/L Potassium 3.7 (3.5-5.1) mmol/L Chloride 106 (98-107) mmol/L Carbon Dioxide 24 (22-30) mmol/L Anion Gap 13.1 (5-15) MEQ/L BUN 14 (7-17) mg/dL Creatinine 0.43 L (0.52-1.04) mg/dL Estimated GFR 98.3 ML/MIN Glucose 104 (74-106) mg/dL Lactic Acid (0.4-2.0) Calcium 8.5 (8.4-10.2) mg/dL Magnesium (1.6-2.3) mg/dL Total Bilirubin 0.60 (0.2-1.3) mg/dL AST 93 H (14-36) U/L ALT 42 H (0-35) U/L Alkaline Phosphatase 86 (38-126) U/L Ammonia < 9 L (9-30) umol/L Creatine Kinase (30-135) U/L Troponin I (0.000-0.033) ng/mL Serum Total Protein 6.7 (6.3-8.2) g/dL Albumin 3.9 (3.5-5.0) g/dL Procalcitonin 0.113 H (0.030-0.080) ng/mL Free T4 (0.78-2.19) ng/dL TSH 3rd Generation (0.470-4.680) mIU/L Urine Color (Yellow) Urine Appearance (Clear) Urine pH (4.6-8.0) Ur Specific [place] (1.005-1.030) Urine Protein (Negative) Urine Glucose (UA) (Negative) mg/dL Urine Ketones (Negative) Urine Blood (Negative) Urine Nitrite (Negative) Urine Bilirubin (Negative) Urine Urobilinogen (0.2) mg/dL Ur Leukocyte Esterase (Negative) U Hyaline Cast (Auto) (0-2) /LPF Urine Microscopic RBC (0-5) /HPF Urine Microscopic WBC (0-5) /HPF Ur Epithelial Cells (None Seen) /HPF Urine Bacteria (None Seen) /HPF Urine Culture Reflexed (NO) Influenza Type A Ag (NEGATIVE) Influenza Type B Ag (NEGATIVE) RSV (PCR) (NEGATIVE) SARS-CoV-2 (PCR) (NEGATIVE) 10/21/24 10/22/24 10/22/24 Range/Units 17:30 05:42 05:42 WBC 5.3 (3.98-10.04) x10^3/uL RBC 4.55 (3.93-5.22) x10^6/uL Hgb 13.8 (11.2-15.7) g/dL Hct 45.1 H (34.1-44.9) % MCV 99.1 H (79.4-94.8) fL MCH 30.3 (25.6-32.2) pg MCHC 30.6 L (32.2-35.5) g/dL RDW 14.1 (11.7-14.4) % Plt Count 131 L (182-369) x10^3/uL MPV 9.6 (9.4-12.3) fL Gran % 52.4 (34.0-71.1) % Immature Gran % (Auto) 0.2 (0.001-0.429) % Nucleat RBC Rel Count 0.0 (0.00-0.2) % Eos # (Auto) 0.02 L (0.04-0.36) x10^3/uL Immature Gran # (Auto) 0.01 (0.001-0.031) x10^3u/L Absolute Lymphs (auto) 1.90 (1.18-3.74) x10^3/uL Absolute Monos (auto) 0.60 (0.24-0.86) x10^3/uL Absolute Nucleated RBC 0.00 (0.00-0.012) x10^3u/L Lymphocytes % 35.6 (19.3-51.7) % Monocytes % 11.2 (4.7-12.5) % Eosinophils % 0.4 L (0.7-5.8) % Basophils % 0.2 (0.1-1.2) % Absolute Granulocytes 2.80 (1.56-6.13) x10^3/uL Basophils # 0.01 (0.01-0.08) x10^3/uL D-Dimer (0.0-0.50) mg/L Puncture Site pCO2 (35-45) mmHg pO2 (75-100) mmHg Base Excess (-2.0-2.0) O2 Saturation (94-100) g/dF ABG pH (7.35-7.45) ABG HCO3 (22-28) ABG O2 Sat (Measured) (95-100) % Randall Test A-a Gradient a/A Ratio Hemoglobin Carboxyhemoglobin (0.0-6.9) % THgb Methemoglobin (1.4-1.5) % Temperature C POC O2 Flow Rate % Sodium 140 (135-145) mmol/L Potassium 3.2 L (3.5-5.1) mmol/L Chloride 111 H (98-107) mmol/L Carbon Dioxide 23 (22-30) mmol/L Anion Gap 8.8 (5-15) MEQ/L BUN 11 (7-17) mg/dL Creatinine 0.55 (0.52-1.04) mg/dL Estimated GFR 92.6 ML/MIN Glucose 88 (74-106) mg/dL Lactic Acid (0.4-2.0) Calcium 8.2 L (8.4-10.2) mg/dL Magnesium (1.6-2.3) mg/dL Total Bilirubin 0.30 (0.2-1.3) mg/dL AST 78 H (14-36) U/L ALT 36 H (0-35) U/L Alkaline Phosphatase 73 (38-126) U/L Ammonia (9-30) umol/L Creatine Kinase 2889 H (30-135) U/L Troponin I (0.000-0.033) ng/mL Serum Total Protein 5.4 L (6.3-8.2) g/dL Albumin 3.0 L (3.5-5.0) g/dL Procalcitonin (0.030-0.080) ng/mL Free T4 (0.78-2.19) ng/dL TSH 3rd Generation (0.470-4.680) mIU/L Urine Color (Yellow) Urine Appearance (Clear) Urine pH (4.6-8.0) Ur Specific [place] (1.005-1.030) Urine Protein (Negative) Urine Glucose (UA) (Negative) mg/dL Urine Ketones (Negative) Urine Blood (Negative) Urine Nitrite (Negative) Urine Bilirubin (Negative) Urine Urobilinogen (0.2) mg/dL Ur Leukocyte Esterase (Negative) U Hyaline Cast (Auto) (0-2) /LPF Urine Microscopic RBC (0-5) /HPF Urine Microscopic WBC (0-5) /HPF Ur Epithelial Cells (None Seen) /HPF Urine Bacteria (None Seen) /HPF Urine Culture Reflexed (NO) Influenza Type A Ag NEGATIVE (NEGATIVE) Influenza Type B Ag NEGATIVE (NEGATIVE) RSV (PCR) NEGATIVE (NEGATIVE) SARS-CoV-2 (PCR) POSITIVE A (NEGATIVE) 10/22/24 Range/Units 05:42 WBC (3.98-10.04) x10^3/uL RBC (3.93-5.22) x10^6/uL Hgb (11.2-15.7) g/dL Hct (34.1-44.9) % MCV (79.4-94.8) fL MCH (25.6-32.2) pg MCHC (32.2-35.5) g/dL RDW (11.7-14.4) % Plt Count (182-369) x10^3/uL MPV (9.4-12.3) fL Gran % (34.0-71.1) % Immature Gran % (Auto) (0.001-0.429) % Nucleat RBC Rel Count (0.00-0.2) % Eos # (Auto) (0.04-0.36) x10^3/uL Immature Gran # (Auto) (0.001-0.031) x10^3u/L Absolute Lymphs (auto) (1.18-3.74) x10^3/uL Absolute Monos (auto) (0.24-0.86) x10^3/uL Absolute Nucleated RBC (0.00-0.012) x10^3u/L Lymphocytes % (19.3-51.7) % Monocytes % (4.7-12.5) % Eosinophils % (0.7-5.8) % Basophils % (0.1-1.2) % Absolute Granulocytes (1.56-6.13) x10^3/uL Basophils # (0.01-0.08) x10^3/uL D-Dimer (0.0-0.50) mg/L Puncture Site pCO2 (35-45) mmHg pO2 (75-100) mmHg Base Excess (-2.0-2.0) O2 Saturation (94-100) g/dF ABG pH (7.35-7.45) ABG HCO3 (22-28) ABG O2 Sat (Measured) (95-100) % Randall Test A-a Gradient a/A Ratio Hemoglobin Carboxyhemoglobin (0.0-6.9) % THgb Methemoglobin (1.4-1.5) % Temperature C POC O2 Flow Rate % Sodium (135-145) mmol/L Potassium (3.5-5.1) mmol/L Chloride (98-107) mmol/L Carbon Dioxide (22-30) mmol/L Anion Gap (5-15) MEQ/L BUN (7-17) mg/dL Creatinine (0.52-1.04) mg/dL Estimated GFR ML/MIN Glucose (74-106) mg/dL Lactic Acid (0.4-2.0) Calcium (8.4-10.2) mg/dL Magnesium 1.7 (1.6-2.3) mg/dL Total Bilirubin (0.2-1.3) mg/dL AST (14-36) U/L ALT (0-35) U/L Alkaline Phosphatase (38-126) U/L Ammonia (9-30) umol/L Creatine Kinase (30-135) U/L Troponin I (0.000-0.033) ng/mL Serum Total Protein (6.3-8.2) g/dL Albumin (3.5-5.0) g/dL Procalcitonin (0.030-0.080) ng/mL Free T4 (0.78-2.19) ng/dL TSH 3rd Generation (0.470-4.680) mIU/L Urine Color (Yellow) Urine Appearance (Clear) Urine pH (4.6-8.0) Ur Specific [place] (1.005-1.030) Urine Protein (Negative) Urine Glucose (UA) (Negative) mg/dL Urine Ketones (Negative) Urine Blood (Negative) Urine Nitrite (Negative) Urine Bilirubin (Negative) Urine Urobilinogen (0.2) mg/dL Ur Leukocyte Esterase (Negative) U Hyaline Cast (Auto) (0-2) /LPF Urine Microscopic RBC (0-5) /HPF Urine Microscopic WBC (0-5) /HPF Ur Epithelial Cells (None Seen) /HPF Urine Bacteria (None Seen) /HPF Urine Culture Reflexed (NO) Influenza Type A Ag (NEGATIVE) Influenza Type B Ag (NEGATIVE) RSV (PCR) (NEGATIVE) SARS-CoV-2 (PCR) (NEGATIVE) Radiology Exams: Radiology Procedures Category Date Time Status CHEST 1 VIEW (PORTABLE) Stat Exams 10/21/24 13:22 Completed ECHO W/2D AND DOPPLER [US] Routine Exams 10/23/24 08:16 Ordered HEAD WITHOUT CONTRAST [CT] Urgent Exams 10/21/24 16:21 Completed KNEE (3 VIEWS) Stat Exams 10/21/24 16:43 Completed Assessment/Plan (1) UTI (urinary tract infection) Current Visit: Yes Status: Acute Assessment & Plan: -UA suspicious for UTI, treated with ceftriaxone in ED - will continue 10/22/24: -Culture pending with gram negative ID- continue ceftriaxone - no urinary symptoms Code(s): N39.0 - URINARY TRACT INFECTION, SITE NOT SPECIFIED (2) Rhabdomyolysis Current Visit: Yes Status: Acute Assessment & Plan: -CPK reviewed and > 3200 -trend -Found on the floor- unknown period of time -Continue IVF -Monitor renal function and for fluid overload 10/22: -Continue IVF -CPK reviewed and improved at 2889< (>) 3200 - trend Transaminitis --Most likely reactive/ secondary to rhabdo -trend -AST reviewed and improved at 78<93, ALT reviewed and improved 36 <42 -Continue IVF Code(s): M62.82 - RHABDOMYOLYSIS AFIB -new onset- possibly secondary to infection -Trop x 1 WNL -Echo when available -noted on EKG/Tele -Rate controlled -BP soft - continue IVF for now- Hold BB for now -Chadvasc score of 4- consider anticoagulation -Cards consulted COVID -Remdesivir initiated -Therapeutic Lovenox per guidelines -Patient on RA- hold dexamethasone -isolation -DDimer per protocol -Consider CT imaging 10/22: -Patient now requiring 1L oxygen - supplemental oxygen with goal spo2> 90% -Start Dexamethasone 6mg x 10 days per COVID guidelines' -Continue Lovenox (therapeutic dosing per guidelines) Tibial fracture -Left knee xray reviewed with A subtle lucent line is seen at the medial tibial plateau. (new finding) ,possibly non-displaced fracture/marrow contusion. Mild sclerotic changes of the patella with subchondral lucency. 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 (new finding). -Ortho consulted- appreciate recs -Pain control (3) High anion gap metabolic acidosis Current Visit: Yes Status: Acute Assessment & Plan: -CMP reviewed -repeat -Likely multifactorial with dehydration/rhabdo, infection -Continue IVF -BMP Q4H -Sodium bicarb drip -continue treatment for UTI as stated above 10/22: -Resolved Code(s): E87.29 - OTHER ACIDOSIS Code(s): R79.89 - OTHER SPECIFIED ABNORMAL FINDINGS OF BLOOD CHEMISTRY (5) Infiltrate noted on imaging study Current Visit: Yes Status: Acute Assessment & Plan: -CXR pending final read - continue ceftriaxone- add azithromycin -IS -Supplemental oxygen with goal spo2 > 90% -RT eval -Nebs prn 10/22: -CXR reviewed showing demonstrates mild right base infiltrate/atelectasis without consolidation/large effusion -Continue ceftriaxone and azithromycin Code(s): R93.89 - ABNORMAL FINDINGS ON DX IMAGING OF OTH BODY STRUCTURES (6) COPD (chronic obstructive pulmonary disease) Current Visit: Yes Status: Acute Assessment & Plan: -see infiltrate above for plan (7) HTN (hypertension) Current Visit: Yes Status: Acute Assessment & Plan: -BP soft - hold BP meds for now - monitor closely Code(s): I10 - ESSENTIAL (PRIMARY) HYPERTENSION (8) Fall Current Visit: Yes Status: Acute Assessment & Plan: -Likely secondary to UTI/infection -Continue IVF -Pain control -PT/OT evaluation -Unknown if LOC or head trauma - will obtain CT head w/o contrast 10/22/24: -CT head with no acute territorial infarction, hemorrhagic pathology VTE: SCD until after head CT PPI: protonix Dispo: 2-3 days Code status: Full Code Code(s): N39.0 - URINARY TRACT INFECTION, SITE NOT SPECIFIED (2) COVID-19 Current Visit: Yes Status: Acute Code(s): U07.1 - COVID-19 (3) Rhabdomyolysis Current Visit: Yes Status: Acute Code(s): M62.82 - RHABDOMYOLYSIS (4) High anion gap metabolic acidosis Current Visit: Yes Status: Acute Code(s): E87.29 - OTHER ACIDOSIS (5) Infiltrate noted on imaging study Current Visit: Yes Status: Acute Code(s): R93.89 - ABNORMAL FINDINGS ON DX IMAGING OF OTH BODY STRUCTURES (6) COPD (chronic obstructive pulmonary disease) Current Visit: Yes Status: Acute (7) HTN (hypertension) Current Visit: Yes Status: Acute Code(s): I10 - ESSENTIAL (PRIMARY) HYPERTENSION (8) Fall Current Visit: Yes Status: Acute Code(s): W19.XXXA - UNSPECIFIED FALL, INITIAL ENCOUNTER (9) Transaminitis Current Visit: Yes Status: Acute Code(s): R74.01 - ELEVATION OF LEVELS OF LIVER TRANSAMINASE LEVELS (10) Tibial plateau fracture, left Current Visit: Yes Status: Acute Code(s): S82.142A - DISPLACED BICONDYLAR FRACTURE OF LEFT TIBIA, INIT (11) Afib Current Visit: Yes Status: Acute Code(s): I48.91 - UNSPECIFIED ATRIAL FIBRILLATION
[2024-10-22] MEDS: Protonix 40MG Tablet PO SCH (10:18)
[2024-10-22] MEDS: ENOXAPARIN SODIUM SQ SCH (10:18)
[2024-10-22] MEDS: ROCEPHIN 1 GM / 100 ML NaCl 1 GM/100 ML IVPB IV SCH (10:18)
[2024-10-22] MEDS: Klor Con PO SCH (10:18)
[2024-10-22] MEDS: DECADRON 10MG INJ. IV SCH (10:18)
[2024-10-22] MEDS ORDERED: Klor Con ONE (16:56)
[2024-10-22] MEDS: REMDESIVIR 100 MG in Sodium Chloride 100ML MINI-BAG PLUS 100 ML IV SCH (18:06)
--- NOTE | 2024-10-22 18:32 | PCM.CONS ---
History of Present Illness - Date of Consult Date of Encounter: 10/22/24 Consulting Shipping And Receiving Clerk: TONO KOCH MD Requesting Provider: Attending Provider: CONSUELO MCCLAIN MD Primary Care Provider: PCP: HAY DENNIS Consent was: Given for this tele-med encounter - Consult Narrative Reason for Consult: New onset atrial fibrillation HPI: Patient is a 79 y.o. female with history of HTN, COPD, and DJD who was found on the floor of her home by her neighbor. She was found to be in atrial flutter with a rapid ventricular response and consultation was requested. She does not have much recall of the event. Her neighbor does check on her every am and found her yesterday on the floor. She has had a cough for one week. She was bothered by light-headedness for several days also She denies any chest pain, fevers, or palpitations. She has not any ECGs performed in recent years. Labs were remarkable for total CK > 3200, unremarkable troponin-I, an anion gap metabolic acidosis, and COVID positivity. CXR revealed a possible RLL infiltate. She was given 2 liters of IVFs in the ER and placed on IVFs at 100 cc/hr. Her ventricular response was mildly rapid upon arrival at 102-107 bpm. Her VR has remained controlled after being volume repleted. cc:: The requesting physician will be sent a copy of the consult. Review of Systems - Review of Systems All systems: all other systems reviewed and were unremarkable (Denies history of melena, hematochezia, or hematemesis.) - Past Medical History Past Medical History: Yes Neurological History: No Pertinent History ENT History: No Pertinent History Cardiac History: No Pertinent History Respiratory History: COPD Endocrine Medical History: No Pertinent History Musculoskelatal History: Arthritis GI Medical History: No Pertinent History History: No Pertinent History Pyscho-Social History: Anxiety Reproductive Disorders: Other Comment: had partial hysterectomy due to dropped uterus and bladder tied up at that time - Past Surgical History Past Surgical History: Yes Neuro Surgical History: No Pertinent History Cardiac History: No Pertinent History Respiratory Surgery: No Pertinent History GI Surgical History: Cholecystectomy Genitourinary Surgical Hx: No Pertinent History, Other Musculskeletal Surgical Hx: Joint Replacement Female Surgical History: Hysterectomy Other Surgical History: partial hysterectomy for uterus dropped and bladder tied up at that time Significant Family History: heart disease - Social History Smoking Status: Never smoker Exposure to second hand smoke: Yes (grandson occasionall) Alcohol: None Drug Use: none - Social Determinants of Health Will the patient participate in the screening: Yes Do you worry about a steady place to live?: No Do you have any problems with any of the following?: No known problems In the past 12 months,have you had to go without utilities?: No Have you or anyone in your house had to go without enough: No Transportation Issues: No Has anyone in your support network made you feel unsafe?: No Medications & Allergies Home Medications: Home Medication List ALPRAZolam 1 MG [Xanax 1 mg] 2 mg PO HS 10/08/15 [History Confirmed 10/21/24] Lisinopril 5 mg [Zestril 5 MG] 5 mg PO DAILY 10/21/24 [History Confirmed 10/21/24] Allergies/Adverse Reactions: Allergies Allergy/AdvReac Type Severity Reaction Status Date / Time NKA Allergy Verified 10/21/24 13:10 Exam - Vitals Vital Signs: Vital Signs - 24 hr Temp Pulse Resp BP Pulse Ox 10/22/24 16:00 98.2 F 83 17 127/83 95 10/22/24 12:00 98.1 F 79 17 120/60 95 10/22/24 09:20 58 L 18 97 10/22/24 08:00 98.0 F 85 15 113/72 97 10/22/24 04:00 98.5 F 87 18 117/78 95 10/22/24 02:02 88 16 97 10/21/24 23:49 98.3 F 71 20 96/54 96 10/21/24 19:06 97.6 F 83 18 109/56 95 General:: no acute distress, alert HEENT: EOMI, No JVD Cardiovascular Exam: normal heart sounds, irregular, No murmur, No friction rub, No gallop Respiratory Exam: other (Right basilar crackles.) SpO2: 95 Oxygen Delivery: Nasal Cannula Gastrointestinal/Abdomen Exam: normal bowel sounds Skin Exam: normal color, warm, dry Extremity Exam: clubbing, No cyanosis, No edema Neurologic: other (Grossly non-focal.) Results Vital Signs: Vital Signs - 24 hr Temp Pulse Resp BP Pulse Ox 10/22/24 16:00 98.2 F 83 17 127/83 95 10/22/24 12:00 98.1 F 79 17 120/60 95 10/22/24 09:20 58 L 18 97 10/22/24 08:00 98.0 F 85 15 113/72 97 10/22/24 04:00 98.5 F 87 18 117/78 95 10/22/24 02:02 88 16 97 10/21/24 23:49 98.3 F 71 20 96/54 96 10/21/24 19:06 97.6 F 83 18 109/56 95 Pain Assessment - Last Documented Pain Intensity 2 Intake and Output: Intake & Output 10/20/24 10/21/24 10/22/24 10/23/24 11:59 11:59 11:59 11:59 Intake Total 3291 1610 Output Total 200 Balance 3091 1610 Weight 82.9 kg LAB: I have reviewed the Labs in [facility]. Radiology Exams: Radiology Procedures Category Date Time Status CHEST 1 VIEW (PORTABLE) Stat Exams 10/21/24 13:22 Completed ECHO W/2D AND DOPPLER [US] Routine Exams 10/23/24 08:16 Ordered HEAD WITHOUT CONTRAST [CT] Urgent Exams 10/21/24 16:21 Completed KNEE (3 VIEWS) Stat Exams 10/21/24 16:43 Completed CXR (AP) 10/21/2024: Mild right base infiltrate/atelectasis without consolidation/large effusion. Heart not enlarged. Head CT without contrast 10/22/2023: 1. No acute territorial infarction, hemorrhagic pathology 2. Generalized involutional changes with chronic microvascular ischemic changes. Stable. 3. Early changes of acute ischemic infarct may sometimes not be detected on a CT scan. If clinically suspicious, MRI with diffusion-weighted imaging may be recommended for further evaluation. Left Knee X-Ray 10/21/2024: 1. Evidence of total knee replacement. new finding. 2. No evidence of prosthesis loosening, break, or chronic osteomyelitis. 3. A subtle lucent line is seen at the medial tibial plateau. (new finding) , possibly non-displaced fracture/marrow contusion, please correlate with the maximum point of tenderness. 4. Mild sclerotic changes of the patella with subchondral lucency. 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 (new finding). Tracing 1 Attestation: I have reviewed this EKG and interpreted as documented below. EKG Narrative: 10/22/2024: Typical atrial flutter with variable AV block at 84 bpm. LAD. PRWP. Nonspecific ST and T wave abnormalities. 10/21/2024: Baseline artifact present. Probable typical atrial flutter with VAVB at 86 bpm. LAD. Nonspecific T wave abnormality. Assessment & Plan (1) Typical atrial flutter Current Visit: Yes Status: Acute Assessment & Plan: Asymptomatic. Of unclear duration. Ventricular response under control without AV juni blocking agents. [id number] score = 4 places patient at a moderate to hi gh risk for an embolic event. Will change Lovenox to Eliquis 2.5 mg by mouth BID starting tonight. Echocardiogram tomorrow to evaluate for structural heart disease. Code(s): I48.3 - TYPICAL ATRIAL FLUTTER (2) COVID-19 Current Visit: No Status: Acute Assessment & Plan: Test positive at arrival. Treatment as per primary team. Code(s): U07.1 - COVID-19 (3) Tibial plateau fracture, left Current Visit: Yes Status: Acute Assessment & Plan: Possible hairline fracture. OK for systemic anticoagulation per ortho (passed on by Ania Reeder NP). Code(s): S82.142A - DISPLACED BICONDYLAR FRACTURE OF LEFT TIBIA, INIT - Encounter Encounter: "The entirety of this encounter was performed via Telemedicine using audio and visual " Permission granted by patient for this type of encounter. Case discussed with Ania Reeder NP. Will follow-up after echocardiogram. Tono Koch MD [facility] [phone]
[2024-10-22] MEDS: ELIQUIS 2.5 MG TABLET PO SCH (22:03)
[2024-10-23 05:22] LABS: ALBUMIN 3.1 g/dL (3.5-5.0); BILIRUBIN,TOTAL 0.2 mg/dL (0.2-1.3); Calcium 8.7 mg/dL (8.4-10.2); Creatinine 1 0.43 mg/dL (0.52-1.04); EST GLOMERULAR FILTRATION RATE 98.3 ML/MIN; MAGNESIUM 1.8 mg/dL (1.6-2.3); Potassium 4.2 mmol/L (3.5-5.1); Total Protein 5.5 g/dL (6.3-8.2)
[2024-10-23 06:15] LABS: Absolute Neutrophil Ct (ANC) 2.11 x10^3/uL (1.56-6.13); Basophil (Absolute #) 0 x10^3/uL (0.01-0.08); Eosinophil (Absolute #) 0 x10^3/uL (0.04-0.36); Hemoglobin 12.8 g/dL (11.2-15.7); IMMATURE GRAN # 0.02 x10^3u/L (0.001-0.031); IMMATURE GRAN % 0.5 % (0.001-0.429); Lymphocyte (Absolute #) 1.13 x10^3/uL (1.18-3.74); Lymphocytes % 29.8 % (19.3-51.7); Mean Cell Volume 92.2 fL (79.4-94.8); Mean Corpuscular Hemoglobin 30.3 pg (25.6-32.2); Mean Corpuscular Hgb Concent. 32.8 g/dL (32.2-35.5); Mean Platelet Volume 9.5 fL (9.4-12.3); Monocyte (Absolute #) 0.53 x10^3/uL (0.24-0.86); Neutrophil % 55.7 % (34.0-71.1); Platelet Count 152 x10^3/uL (182-369); Red Blood Count 4.23 x10^6/uL (3.93-5.22); White Blood Count 3.8 x10^3/uL (3.98-10.04)
--- NOTE | 2024-10-23 08:32 | CONS ---
REASON FOR CONSULTATION: Rule out factor left knee. HISTORY: This 79-year-old female was admitted yesterday after being found on the floor of her home by a neighbor. The patient had no recollection of falling and was not sure how long she had been on the floor. She was brought to the hospital emergency room by squad and was evaluated in the ER and found to be in atrial fibrillation. The patient was found to have rhabdomyolysis and was admitted to the hospital for further treatment and evaluation. The patient reported having a chronic cough but no other symptoms. She complained of pain in her hand. She also mentioned that her knee was sore. She has had both knees replaced in the past and her left knee was the painful one at this time and it was replaced in April, she claims. She had x-rays done on her left knee and the x-rays were interpreted as showing a possible fracture so an orthopedic consultation was obtained. The patient is currently awake, alert, and oriented. I was able to interview her and she explained that her knee had been giving way at times since the operation. She reports "soreness" in her knee at this time and reports that the symptoms are fairly diffuse all around the knee but mostly on the outside. PAST MEDICAL HISTORY: Positive for COPD, arthritis, anxiety. PAST SURGICAL HISTORY: Partial hysterectomy, cholecystectomy, bilateral knee replacements. HOME MEDICATIONS: Alprazolam 1 mg p.o. at bedtime, lisinopril 5 mg p.o. daily. ALLERGIES: No known allergies. SOCIAL HISTORY: Nonsmoker. Lives alone. REVIEW OF SYSTEMS: Positive for generalized weakness, dizziness. Negative for eye symptoms, ear, nose, throat symptoms, cardiac symptoms, GI symptoms. LAB DATA AND TEST: X-rays left knee 2 views reviewed. There is a cemented tibial component in the total knee and there is no evidence of lucency under the central keel, medial or lateral plateau. At the medial corner of the tibial tray, there is a small area of lucency measuring approximately 5 to 7 mm. No cortical disruption is noted. PHYSICAL EXAMINATION: VITAL SIGNS: Temperature 98.4, pulse 93, respirations 23, BP 92/58, pulse oximetry 97%. GENERAL: Awake, alert female, no acute distress, breathing easily on room air. She can move all 4 extremities. ORTHOPEDIC: Both knees were viewed and she has well-healed midline knee incisions consistent with history of prior knee replacement. She has normal skin color but there are small red spots dispersed on both lower extremities, but more so on the left. The small red spots are mostly on the lateral side of her knee and are less than 1 mm in size. They are quite infrequent in the thigh but there is a cluster in an area measuring about 2 inches in length on the lateral side of her left knee. Skin is not raised. Skin is intact. No open wounds. There is no visible swelling around the knee joint, no palpable effusion. There is no redness or abnormal warmth. She complains of tenderness to palpation over the patella. Complains of tenderness to palpation over the lateral side of the knee. Mild tenderness medially at the joint line, but lateral tenderness exceeds medial tenderness. She can do a straight leg raise. She can actively flex and extend her left knee from 0 to 90 degrees. Gentle varus and valgus stress testing were performed and revealed no instability and no significant increase in pain. I flexed her knee to 90 degrees and then rotated her extremity at the hip joint producing mild varus and valgus stress to the knee in the process, and this elicited no significant knee pain. IMPRESSION: 1) Left knee pain. 2) History of left knee replacement. 3) Rhabdomyolysis. 4) X-ray interpretation of possible occult fracture. PLAN: We cannot say for certain if this is a fracture but the component on the tibial side appears to be stable with only 1 very small area that is questionable. I would recommend that she be permitted to weight bear as tolerated and proceed with a physical therapy evaluation. If the patient has pain and cannot bear weight, we should get a CT scan but at this point the components appear stable. The possibility that this represents a true fracture is present, however, appears unlikely. A fracture of this size, given that the rest of the component appears stable, would not require surgical intervention and would likely not impede her ability to do therapy or bear weight. We will continue to monitor situation and reassess her after she has had physical therapy.
[2024-10-23] MEDS: MAG-OX 400 PO ONE (08:39)
--- NOTE | 2024-10-23 09:22 | PCM.NOTE ---
Date and Time: 10/23/24 0904 Subjective Assessment: Ms. Snyder is an 79-year-old female with a history of HTN and COPD. She presented to the ED 10/21/24 after being found on the floor by a neighbor, for an unknown period of downtime. Patient states the last thing she remembers is trying to get out of bed. She does not report any pain. She endorsed a non-pro ductive cough and some mild light headedness. Her neighbor states she seems more confused than normal. Denies fever, sob, cp, abdominal pain, HILL, dizziness, N/V/D. On arrival, she was hemodynamically stable and alert. EKG showed atrial fibrillation with a controlled rate of 86 bpm and no signs of acute ischemia. Chest X-ray showed a right-sided infiltrate concerning for pneumonia. On admission laboratory evaluation revealed significant rhabdomyolysis (CK >3200, anion gap metabolic acidosis, mild transaminitis, and a urinary tract infection without leukocytosis. She received a 1L fluid bolus and Ceftriaxone in the ED. Admitted for rhabdomyolysis, UTI, COVID, and further evaluation/treatment of metabolic acidosis. It was seen on today she c/o overall muscle aching. Left knee XR on 10/21 showed a subtle lucent line is seen at the medial tibial plateau. (new finding), possibly non-displaced fracture/marrow contusion, please correlate with the maximum point of tenderness.Mild sclerotic changes of the patella with subchondral lucency. 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 (new finding). Ortho consulted and recs pending. Pt has no c/o of pain in the areas addressed on XR. PT and OT evals pending for extreme weakness and possible need for rehab. Eliquis 5mg BID started by cardiology yesterday for new onset atrial flutter as seen on admission EKG. Cardiology notes states to start 2.5 of Eliquis BID but discussed with cardiology and this was an error in the note. Clarification with cards is in fact 5mg BID. Echo pending today. Mg+ 1.8 and replaced to keep > 2. Continue Dexamethasone and Remdesivir for treatment of COVID. Continue IV antibiotics, Xoponex, steroids for pneumonia. She is room air 96%. CK improving and 1037 today- continue IVF for Rhabdo. Pt denies CP, SOB, abd. pain, N/V/D. - Review of Systems Constitutional: Fatigue, Weakness, No Fever, No Chills Eyes: No Symptoms Ears, Nose, & Throat: No Symptoms Respiratory: No Cough, No Short Of Breath Cardiac: No Chest Pain, No Edema, No Syncope Abdominal/Gastrointestinal: No Abdominal Pain, No Nausea, No Vomiting, No Diarrhea Genitourinary Symptoms: No Dysuria Musculoskeletal: No Back Pain, No Neck Pain Skin: No Rash Neurological: No Dizziness, No Focal Weakness, No Sensory Changes Psychological: No Symptoms Endocrine: No Symptoms Hematologic/Lymphatic: No Symptoms Immunological/Allergic: No Symptoms Objective Exam General Appearance: no apparent distress, alert, obese Neurologic Exam: alert, oriented x 3, cooperative, normal mood/affect, nml cerebellar function, sensation nml, motor weakness, No motor deficits Skin Exam: normal color, warm, dry Eye Exam: PERRL, EOMI, eyes nml inspection Ears, Nose, Throat Exam: normal ENT inspection, pharynx normal, moist mucous membranes Neck Exam: normal inspection, non-tender, supple, full range of motion Respiratory Exam: normal breath sounds, lungs clear, No respiratory distress Cardiovascular Exam: regular rate/rhythm, normal heart sounds Gastrointestinal/Abdomen Exam: soft, No tenderness, No mass Extremity Exam: normal inspection, normal range of motion Back Exam: normal inspection, normal range of motion, No CVA tenderness, No vertebral tenderness Pelvic Exam: deferred Rectal Exam: deferred Objective Data Vital Signs: Vital Signs - 24 hr Temp Pulse Resp BP Pulse Ox 10/23/24 08:00 98.1 F 73 17 134/69 96 10/23/24 07:22 93 H 18 92 L 10/23/24 05:40 82 94 L 10/23/24 04:00 97.7 F 72 18 136/87 97 10/23/24 03:23 95 10/23/24 00:00 97.9 F 83 20 141/71 97 10/22/24 23:38 75 97 10/22/24 20:00 97.6 F 87 21 140/73 96 10/22/24 19:35 94 L 10/22/24 16:00 98.2 F 83 17 127/83 95 10/22/24 12:00 98.1 F 79 17 120/60 95 10/22/24 09:20 58 L 18 97 Pain Assessment - Last Documented Pain Intensity 0 Intake and Output: Intake & Output 10/20/24 10/21/24 10/22/24 10/23/24 11:59 11:59 11:59 11:59 Intake Total 3291 3909 Output Total 200 3911 Balance 3099 4299 Weight 82.9 kg 87.6 kg Lab Results: Lab Results-Last 24 Hours 10/22/24 10/22/24 10/22/24 Range/Units 05:42 12:46 17:02 WBC (3.98-10.04) x10^3/uL RBC (3.93-5.22) x10^6/uL Hgb (11.2-15.7) g/dL Hct (34.1-44.9) % MCV (79.4-94.8) fL MCH (25.6-32.2) pg MCHC (32.2-35.5) g/dL RDW (11.7-14.4) % Plt Count (182-369) x10^3/uL MPV (9.4-12.3) fL Gran % (34.0-71.1) % Immature Gran % (Auto) (0.001-0.429) % Nucleat RBC Rel Count (0.00-0.2) % Eos # (Auto) (0.04-0.36) x10^3/uL Immature Gran # (Auto) (0.001-0.031) x10^3u/L Absolute Lymphs (auto) (1.18-3.74) x10^3/uL Absolute Monos (auto) (0.24-0.86) x10^3/uL Absolute Nucleated RBC (0.00-0.012) x10^3u/L Lymphocytes % (19.3-51.7) % Monocytes % (4.7-12.5) % Eosinophils % (0.7-5.8) % Basophils % (0.1-1.2) % Absolute Granulocytes (1.56-6.13) x10^3/uL Basophils # (0.01-0.08) x10^3/uL Sodium (135-145) mmol/L Potassium 3.3 L 3.8 (3.5-5.1) mmol/L Chloride (98-107) mmol/L Carbon Dioxide (22-30) mmol/L Anion Gap (5-15) MEQ/L BUN (7-17) mg/dL Creatinine (0.52-1.04) mg/dL Estimated GFR ML/MIN Glucose (74-106) mg/dL Calcium (8.4-10.2) mg/dL Magnesium 1.7 (1.6-2.3) mg/dL Total Bilirubin (0.2-1.3) mg/dL AST (14-36) U/L ALT (0-35) U/L Alkaline Phosphatase (38-126) U/L Creatine Kinase (30-135) U/L Serum Total Protein (6.3-8.2) g/dL Albumin (3.5-5.0) g/dL 10/23/24 10/23/24 Range/Units 04:35 04:35 WBC 3.8 L (3.98-10.04) x10^3/uL RBC 4.23 (3.93-5.22) x10^6/uL Hgb 12.8 (11.2-15.7) g/dL Hct 39.0 (34.1-44.9) % MCV 92.2 D (79.4-94.8) fL MCH 30.3 (25.6-32.2) pg MCHC 32.8 (32.2-35.5) g/dL RDW 14.0 (11.7-14.4) % Plt Count 152 L (182-369) x10^3/uL MPV 9.5 (9.4-12.3) fL Gran % 55.7 (34.0-71.1) % Immature Gran % (Auto) 0.5 H (0.001-0.429) % Nucleat RBC Rel Count 0.0 (0.00-0.2) % Eos # (Auto) 0 L (0.04-0.36) x10^3/uL Immature Gran # (Auto) 0.02 (0.001-0.031) x10^3u/L Absolute Lymphs (auto) 1.13 L (1.18-3.74) x10^3/uL Absolute Monos (auto) 0.53 (0.24-0.86) x10^3/uL Absolute Nucleated RBC 0.00 (0.00-0.012) x10^3u/L Lymphocytes % 29.8 (19.3-51.7) % Monocytes % 14.0 H (4.7-12.5) % Eosinophils % 0.0 L (0.7-5.8) % Basophils % 0.0 L (0.1-1.2) % Absolute Granulocytes 2.11 (1.56-6.13) x10^3/uL Basophils # 0 L (0.01-0.08) x10^3/uL Sodium 142 (135-145) mmol/L Potassium 4.2 (3.5-5.1) mmol/L Chloride 114 H (98-107) mmol/L Carbon Dioxide 21 L (22-30) mmol/L Anion Gap 11.0 (5-15) MEQ/L BUN 13 (7-17) mg/dL Creatinine 0.43 L (0.52-1.04) mg/dL Estimated GFR 98.3 ML/MIN Glucose 123 H (74-106) mg/dL Calcium 8.7 (8.4-10.2) mg/dL Magnesium 1.8 (1.6-2.3) mg/dL Total Bilirubin 0.20 (0.2-1.3) mg/dL AST 55 H (14-36) U/L ALT 36 H (0-35) U/L Alkaline Phosphatase 70 (38-126) U/L Creatine Kinase 1037 H (30-135) U/L Serum Total Protein 5.5 L (6.3-8.2) g/dL Albumin 3.1 L (3.5-5.0) g/dL Radiology Exams: Radiology Procedures Category Date Time Status CHEST 1 VIEW (PORTABLE) Stat Exams 10/21/24 13:22 Completed ECHO W/2D AND DOPPLER [US] Routine Exams 10/23/24 08:16 Ordered HEAD WITHOUT CONTRAST [CT] Urgent Exams 10/21/24 16:21 Completed KNEE (3 VIEWS) Stat Exams 10/21/24 16:43 Completed Assessment/Plan (1) Atrial fibrillation and flutter Current Visit: Yes Status: Acute Assessment & Plan: - New onset- possibly secondary to infection - Tele - Trop x 1 WNL - Echo today - Noted on EKG/Tele - Rate controlled - BP soft - continue IVF for now- Hold BB for now - Chadvasc score of 4- - Cards consulted- note reviewed and clarification of Eliquis dose - Pt started on Eliquis 5mg BID per cardiology. Code(s): I48.91 - UNSPECIFIED ATRIAL FIBRILLATION; I48.92 - UNSPECIFIED ATRIAL FLUTTER (2) Pneumonia Current Visit: Yes Status: Acute Qualifiers: Pneumonia type: due to COVID-19 virus Qualified Code(s): U07.1 - COVID-19; J12.82 - Pneumonia due to coronavirus disease 2019 Assessment & Plan: - CXR reviewed- demonstrates mild right base infiltrate/atelectasis without consolidation/large effusion - Continue ceftriaxone and azithromycin, steroids, xoponex - RA 96% Code(s): J18.9 - PNEUMONIA, UNSPECIFIED ORGANISM (3) Rhabdomyolysis Current Visit: Yes Status: Acute Assessment & Plan: - CK improving 1037 - Continue IVF Code(s): M62.82 - RHABDOMYOLYSIS (4) Tibial plateau fracture, left Current Visit: Yes Status: Acute Assessment & Plan: - As seen on XR - Ortho consult- awaiting recs - Denies pain Code(s): S82.142A - DISPLACED BICONDYLAR FRACTURE OF LEFT TIBIA, INIT (5) Transaminitis Current Visit: Yes Status: Acute Assessment & Plan: - Improving AST 55, ALT 36 - Continue IVF - No abd. pain Code(s): R74.01 - ELEVATION OF LEVELS OF LIVER TRANSAMINASE LEVELS (6) UTI (urinary tract infection) Current Visit: Yes Status: Acute Assessment & Plan: - UC + Enterobactor Clocae - Stop ceftriaxone- start cefepime per [facility] antibiogram Code(s): N39.0 - URINARY TRACT INFECTION, SITE NOT SPECIFIED (7) COVID-19 Current Visit: No Status: Acute Assessment & Plan: - + test in ER -Remdesivir, Dexamethasone - RA 96% - Eliquis BID Code(s): U07.1 - COVID-19 (8) Weakness Current Visit: No Status: Acute Assessment & Plan: - PT/OT - Discussed with case management possible need for rehab placement - Pt found on admission to have fallen and covered in feces with hair matted. Code(s): R53.1 - WEAKNESS (9) Obesity (BMI 30.0-34.9) Current Visit: Yes Status: Chronic Assessment & Plan: - Advised diet and exercise control Code(s): E66.811 - OBESITY, CLASS 1 (10) HTN (hypertension) Current Visit: Yes Status: Chronic Qualifiers: Hypertension type: primary hypertension Qualified Code(s): I10 - Essential (primary) hypertension Assessment & Plan: - Continue home meds, BP controlled Code(s): I10 - ESSENTIAL (PRIMARY) HYPERTENSION (11) Insomnia Current Visit: Yes Status: Chronic Assessment & Plan: - Pt reports she has not been sleeping well since admission and only slept 2 hours last night - Pt reports she takes xanax at night for sleep , will check INSPECT - Melatonin started for now d/t recent confusion. VTE: Eliquis 5mg BID PPI: Protonix Dispo: 1-2 days Code status: Full Code Next of KIN: Gladys - Miriam Moreira [phone] Code(s): G47.00 - INSOMNIA, UNSPECIFIED
[2024-10-23] MEDS: Zestril 5 MG PO SCH (11:36)
[2024-10-23] MEDS: Xopenex 1.25 MG/0.5 ML UD NEBULE IH SCH (13:26)
[2024-10-23] MEDS: Maxipime 2 GM** 2 G in Sodium Chloride 0.9% 100 ML IV SCH (14:57)
--- NOTE | 2024-10-23 21:05 | PCM.NOTE ---
Date and Time: 10/23/242057 Subjective Assessment: No complaints. anxious about new cardiac diagnoses. Exam General:: no acute distress, alert HEENT: EOMI Cardiovascular: s1 s2, other (Irregular.), No no murmurs,rubs,gallops Respiratory:: other (Basilar crackles.) Abdominal: active bowel sounds x 4 Extremity Exam: No edema (Grossly nonfocal.) Objective Data Vital Signs: Vital Signs - 24 hr Temp Pulse Resp BP Pulse Ox 10/23/24 19:36 94 L 10/23/24 19:35 97.7 F 69 16 165/56 95 10/23/24 16:00 97.2 F 78 14 140/72 96 10/23/24 13:44 78 18 97 10/23/24 12:00 98.2 F 85 16 124/68 96 10/23/24 08:00 98.1 F 73 17 134/69 96 10/23/24 07:22 93 H 18 92 L 10/23/24 05:40 82 94 L 10/23/24 04:00 97.7 F 72 18 136/87 97 10/23/24 03:23 95 10/23/24 00:00 97.9 F 83 20 141/71 97 10/22/24 23:38 75 97 Pain Assessment - Last Documented Pain Intensity 0 Intake and Output: Intake & Output 10/21/24 10/22/24 10/23/24 10/24/24 11:59 11:59 11:59 11:59 Intake Total 3291 4269 1890 Output Total 200 1300 1000 Balance 3091 2969 890 Weight 82.9 kg 87.6 kg LAB: I have reviewed the Labs in [employer]. Lab Results: Lab Results-Last 24 Hours 10/23/24 10/23/24 Range/Units 04:35 04:35 WBC 3.8 L (3.98-10.04) x10^3/uL RBC 4.23 (3.93-5.22) x10^6/uL Hgb 12.8 (11.2-15.7) g/dL Hct 39.0 (34.1-44.9) % MCV 92.2 D (79.4-94.8) fL MCH 30.3 (25.6-32.2) pg MCHC 32.8 (32.2-35.5) g/dL RDW 14.0 (11.7-14.4) % Plt Count 152 L (182-369) x10^3/uL MPV 9.5 (9.4-12.3) fL Gran % 55.7 (34.0-71.1) % Immature Gran % (Auto) 0.5 H (0.001-0.429) % Nucleat RBC Rel Count 0.0 (0.00-0.2) % Eos # (Auto) 0 L (0.04-0.36) x10^3/uL Immature Gran # (Auto) 0.02 (0.001-0.031) x10^3u/L Absolute Lymphs (auto) 1.13 L (1.18-3.74) x10^3/uL Absolute Monos (auto) 0.53 (0.24-0.86) x10^3/uL Absolute Nucleated RBC 0.00 (0.00-0.012) x10^3u/L Lymphocytes % 29.8 (19.3-51.7) % Monocytes % 14.0 H (4.7-12.5) % Eosinophils % 0.0 L (0.7-5.8) % Basophils % 0.0 L (0.1-1.2) % Absolute Granulocytes 2.11 (1.56-6.13) x10^3/uL Basophils # 0 L (0.01-0.08) x10^3/uL Sodium 142 (135-145) mmol/L Potassium 4.2 (3.5-5.1) mmol/L Chloride 114 H (98-107) mmol/L Carbon Dioxide 21 L (22-30) mmol/L Anion Gap 11.0 (5-15) MEQ/L BUN 13 (7-17) mg/dL Creatinine 0.43 L (0.52-1.04) mg/dL Estimated GFR 98.3 ML/MIN Glucose 123 H (74-106) mg/dL Calcium 8.7 (8.4-10.2) mg/dL Magnesium 1.8 (1.6-2.3) mg/dL Total Bilirubin 0.20 (0.2-1.3) mg/dL AST 55 H (14-36) U/L ALT 36 H (0-35) U/L Alkaline Phosphatase 70 (38-126) U/L Creatine Kinase 1037 H (30-135) U/L Serum Total Protein 5.5 L (6.3-8.2) g/dL Albumin 3.1 L (3.5-5.0) g/dL Radiology Exams: Radiology Procedures Category Date Time Status ECHO W/2D AND DOPPLER [US] Routine Exams 10/23/24 08:16 Taken TTE 10/23/2024: 1. Normal chamber sizes. 2. Mild concentric left ventricular hypertrophy. 3. Normal left ventricular systolic function without focal wall motion abnormalities. Estimated EF 60-65%. 4. Normal right ventricular systolic function. 5. Unable to determine grade of LV dysfunction due to underlying atrial flutter 6. Normal right ventricular systolic function. 7. Mildly dilated proximal ascending aorta (3.7 cm). 8. Mild aortic sclerosis without stenosis. 9. Doppler: Mild to moderate mitral regurgitation, mild tricuspid regurgitation. 10. Mildly elevated PA systolic pressure (36 mmHg). 11. Mildly elevated right atrial pressure (8 mmHg). 12. No pericardial effusion. Tracing 1 Attestation: I have reviewed this EKG and interpreted as documented below. EKG Narrative: Telemetry: Atrial flutter with VAVB at 74 bpm. Multi-Disciplinary Progress Notes: Multi-Disciplinary Progress Notes 10/23/24 15:09 Radiology Note by CLIFF KOCH TRANSTHORACIC ECHOCARDIOGRAM 10/23/2024: 1. Normal chamber sizes. 2. Mild concentric left ventricular hypertrophy. 3. Normal left ventricular systolic function without focal wall motion abnormalities. Estimated EF 60-65%. 4. Normal right ventricular systolic function. 5. Unable to determine grade of LV dysfunction due to underlying atrial flutter 6. Normal right ventricular systolic function. 7. Mildly dilated proximal ascending aorta (3.7 cm). 8. Mild aortic sclerosis without stenosis. 9. Doppler: Mild to moderate mitral regurgitation, mild tricuspid regurgitation. 10. Mildly elevated PA systolic pressure (36 mmHg). 11. Mildly elevated right atrial pressure (8 mmHg). 12. No pericardial effusion. Cliff Koch MD [facility] Initialized on 10/23/24 15:09 - END OF NOTE 10/23/24 12:24 Case Management Note by Kamille Dominguez FULL REFERRAL FAXED TO [employer] Initialized on 10/23/24 12:24 - END OF NOTE 10/23/24 11:36 Case Management Note by Kamille Dominguez COMPLETE- NO LEVEL II REQUIRED- COPIES PLACED IN CHART Initialized on 10/23/24 11:36 - END OF NOTE Assessment & Plan (1) Typical atrial flutter Current Visit: Yes Status: Acute Assessment & Plan: VR remains controlled. On Eliquis for systemic anticoagulation. Will need to follow-up with local associate attorney regarding her atrial flutter. She should discuss the option of atrial flutter ablation with her new local associate attorney if her only atrial arrhythmia is typical atrial flutter. If her ventricular response becomes mildly elevated, could add metoprolol succinate 12.5 mg daily. Code(s): I48.3 - TYPICAL ATRIAL FLUTTER (2) HTN (hypertension) Current Visit: Yes Status: Chronic Qualifiers: Hypertension type: primary hypertension Qualified Code(s): I10 - Essential (primary) hypertension Assessment & Plan: Mildy elevated tonight with repeat measurement 138/75. Could increase lisinopril tomorrow if BP remains mildly elevated. Code(s): I10 - ESSENTIAL (PRIMARY) HYPERTENSION (3) COVID-19 Current Visit: No Status: Acute Assessment & Plan: As per primary team. Code(s): U07.1 - COVID-19 (4) Tibial plateau fracture, left Current Visit: Yes Status: Acute Assessment & Plan: As per orthopedics Code(s): S82.142A - DISPLACED BICONDYLAR FRACTURE OF LEFT TIBIA, INIT - Encounter Encounter: "The entirety of this encounter was performed via Telemedicine using audio and visual " Patient granted permission for this type of encounter. Wll follow-up on 10/25. Cliff Koch MD [facility] [phone]
[2024-10-23] MEDS: MELATONIN PO PRN (22:49)
[2024-10-24 05:21] LABS: Absolute Neutrophil Ct (ANC) 3.27 x10^3/uL (1.56-6.13); Basophil (Absolute #) 0 x10^3/uL (0.01-0.08); Eosinophil (Absolute #) 0 x10^3/uL (0.04-0.36); Hematocrit 37.3 % (34.1-44.9); Hemoglobin 12.2 g/dL (11.2-15.7); IMMATURE GRAN # 0.02 x10^3u/L (0.001-0.031); IMMATURE GRAN % 0.4 % (0.001-0.429); Lymphocyte (Absolute #) 1.59 x10^3/uL (1.18-3.74); Mean Cell Volume 91.9 fL (79.4-94.8); Mean Corpuscular Hgb Concent. 32.7 g/dL (32.2-35.5); Mean Platelet Volume 9.4 fL (9.4-12.3); Monocyte (Absolute #) 0.61 x10^3/uL (0.24-0.86); Monocytes % 11.1 % (4.7-12.5); Neutrophil % 59.5 % (34.0-71.1); Platelet Count 153 x10^3/uL (182-369); Red Blood Count 4.06 x10^6/uL (3.93-5.22); Red Cell Distribution Width 14.2 % (11.7-14.4); White Blood Count 5.5 x10^3/uL (3.98-10.04)
[2024-10-24 05:35] LABS: ALBUMIN 3.2 g/dL (3.5-5.0); ANION GAP 12.2 MEQ/L (5-15); BILIRUBIN,TOTAL 0.3 mg/dL (0.2-1.3); Calcium 8.8 mg/dL (8.4-10.2); Creatinine 1 0.5 mg/dL (0.52-1.04); EST GLOMERULAR FILTRATION RATE 94.8 ML/MIN; MAGNESIUM 1.8 mg/dL (1.6-2.3); Potassium 3.9 mmol/L (3.5-5.1); Total Protein 5.7 g/dL (6.3-8.2)
--- NOTE | 2024-10-24 10:53 | PROG NOTE ---
SUBJECTIVE: This patient was seen yesterday as an initial consult for left leg pain and possible fracture of the tibia. She had a left knee replacement back in April. There was no witnessed fall, but the patient was found on the ground by a friend and had pain in multiple body areas. When she was evaluated in the emergency room, she had an x-ray taken of her left knee, and the reading suggested the possibility of a crack near the medial tibial plateau. The patient was noted to have mild pain throughout the knee, but no focal pain on the medial side that was any worse than what she had anywhere else. In fact, most of her pain was lateral. Physical therapy with weightbearing as tolerated was ordered, and she is seen today as followup. Today, she states that the left knee does not hurt. She is up in a chair. She is standing pivot transfer with Nursing and also has been seen by Physical Therapy. She has been able to bear weight as tolerated on the left lower extremity, and her only complaint was dizziness. OBJECTIVE: Exam of left leg, skin color and temperature are normal. She has a well-healed incision from prior knee replacement. She can actively flex and extend the left knee against gravity without difficulty. She can hold the knee fully extended against resistance with grade 4 strength. She is tender at the lateral side of the knee, mildly tender over the patella, and mildly tender over the medial joint line area. Varus and valgus stability are within normal limits and pain-free. ASSESSMENT: 1) Recent undiagnosed fall. 2) Left knee pain. 3) History of left knee replacement. 4) X-ray reading suggesting fracture of medial tibia; however, clinical correlation indicates that there is no significant fracture of the tibia and she may proceed to bear weight as tolerated. Continue physical therapy with plans for discharge to [facility].
--- NOTE | 2024-10-24 13:24 | PCM.NOTE ---
Date and Time: 10/24/24 1318 Subjective Assessment: 10/23/24 Ms. Snyder is an 79-year-old female with a history of HTN and COPD. She presented to the ED 10/21/24 after being found on the floor by a neighbor, for an unknown period of downtime. Patient states the last thing she remembers is trying to get out of bed. She does not report any pain. She endorsed a non- productive cough and some mild light headedness. Her neighbor states she seems more confused than normal. Denies fever, sob, cp, abdominal pain, HILL, dizziness, N/V/D. On arrival, she was hemodynamically stable and alert. EKG showed atrial fibrillation with a controlled rate of 86 bpm and no signs of acute ischemia. Chest X-ray showed a right-sided infiltrate concerning for pneumonia. On admis skyler laboratory evaluation revealed significant rhabdomyolysis (CK >3200, anion gap metabolic acidosis, mild transaminitis, and a urinary tract infection without leukocytosis. She received a 1L fluid bolus and Ceftriaxone in the ED. Admitted for rhabdomyolysis, UTI, COVID, and further evaluation/treatment of metabolic acidosis. It was seen on today she c/o overall muscle aching. Left knee XR on 10/21 showed a subtle lucent line is seen at the medial tibial plateau. (new finding), possibly non-displaced fracture/marrow contusion, please correlate with the maximum point of tenderness.Mild sclerotic changes of the patella with subchondral lucency. 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 (new finding). Ortho consulted and recs pending. Pt has no c/o of pain in the areas addressed on XR. PT and OT evals pending for extreme weakness and possible need for rehab. Eliquis 5mg BID started by cardiology yesterday for new onset atrial flutter as seen on admission EKG. Cardiology notes states to start 2.5 of Eliquis BID but discussed with cardiology and this was an error in the note. Clarification with cards is in fact 5mg BID. Echo pending today. Mg+ 1.8 and replaced to keep > 2. Continue Dexamethasone and Remdesivir for treatment of COVID. Continue IV antibiotics, Xoponex, steroids for pneumonia. She is room air 96%. CK improving and 1037 today- continue IVF for Rhabdo. Pt denies CP, SOB, abd. pain, N/V/D. 3/25/25 Pt resting in bed. She states she is feeling much better today and has less muscle aches. CK improved at 465, continue IVF. Heart rate controlled. Echo reviewed and EF 60-65%. Continue Dexamethasone and Remdesivir for treatment of COVID. Continue IV antibiotics, Xoponex, steroids for pneumonia. She is room air 93%. Pt denies CP, SOB, abd. pain, N/V/D. APS now involved in care per case management. - Review of Systems Constitutional: No Fever, No Chills Eyes: No Symptoms Ears, Nose, & Throat: No Symptoms Respiratory: No Cough, No Short Of Breath Cardiac: No Chest Pain, No Edema, No Syncope Abdominal/Gastrointestinal: No Abdominal Pain, No Nausea, No Vomiting, No Diarrhea Genitourinary Symptoms: No Dysuria Musculoskeletal: No Back Pain, No Neck Pain Skin: No Rash Neurological: No Dizziness, No Focal Weakness, No Sensory Changes Psychological: No Symptoms Endocrine: No Symptoms Hematologic/Lymphatic: No Symptoms Immunological/Allergic: No Symptoms Objective Exam General Appearance: no apparent distress, alert, obese Neurologic Exam: alert, oriented x 3, cooperative, normal mood/affect, nml cerebellar function, sensation nml, motor weakness, No motor deficits Skin Exam: normal color, warm, dry Eye Exam: PERRL, EOMI, eyes nml inspection Ears, Nose, Throat Exam: normal ENT inspection, pharynx normal, moist mucous membranes Neck Exam: normal inspection, non-tender, supple, full range of motion Respiratory Exam: normal breath sounds, lungs clear, No respiratory distress Cardiovascular Exam: regular rate/rhythm, normal heart sounds Gastrointestinal/Abdomen Exam: soft, No tenderness, No mass Extremity Exam: normal inspection, normal range of motion Back Exam: normal inspection, normal range of motion, No CVA tenderness, No vertebral tenderness Pelvic Exam: deferred Rectal Exam: deferred Objective Data Vital Signs: Vital Signs - 24 hr Temp Pulse Resp BP Pulse Ox 10/24/24 12:40 61 18 93 L 10/24/24 12:00 97.0 F 71 20 150/74 95 10/24/24 07:46 97.9 F 69 22 133/75 93 L 10/24/24 04:00 98.1 F 80 19 158/93 93 L 10/23/24 23:37 98.3 F 72 15 149/71 96 10/23/24 21:30 74 138/75 10/23/24 19:36 94 L 10/23/24 19:35 97.7 F 69 16 165/56 95 10/23/24 16:00 97.2 F 78 14 140/72 96 10/23/24 13:44 78 18 97 Pain Assessment - Last Documented Pain Intensity 0 Intake and Output: Intake & Output 10/22/24 10/23/24 10/24/24 10/25/24 11:59 11:59 11:59 11:59 Intake Total 3291 4269 4004 Output Total 200 1300 2400 Balance 3091 2969 1604 Weight 82.9 kg 87.6 kg 87.6 kg Lab Results: Lab Results-Last 24 Hours 10/24/24 10/24/24 Range/Units 05:15 05:15 WBC 5.5 (3.98-10.04) x10^3/uL RBC 4.06 (3.93-5.22) x10^6/uL Hgb 12.2 (11.2-15.7) g/dL Hct 37.3 (34.1-44.9) % MCV 91.9 (79.4-94.8) fL MCH 30.0 (25.6-32.2) pg MCHC 32.7 (32.2-35.5) g/dL RDW 14.2 (11.7-14.4) % Plt Count 153 L (182-369) x10^3/uL MPV 9.4 (9.4-12.3) fL Gran % 59.5 (34.0-71.1) % Immature Gran % (Auto) 0.4 (0.001-0.429) % Nucleat RBC Rel Count 0.0 (0.00-0.2) % Eos # (Auto) 0 L (0.04-0.36) x10^3/uL Immature Gran # (Auto) 0.02 (0.001-0.031) x10^3u/L Absolute Lymphs (auto) 1.59 (1.18-3.74) x10^3/uL Absolute Monos (auto) 0.61 (0.24-0.86) x10^3/uL Absolute Nucleated RBC 0.00 (0.00-0.012) x10^3u/L Lymphocytes % 29.0 (19.3-51.7) % Monocytes % 11.1 (4.7-12.5) % Eosinophils % 0.0 L (0.7-5.8) % Basophils % 0.0 L (0.1-1.2) % Absolute Granulocytes 3.27 (1.56-6.13) x10^3/uL Basophils # 0 L (0.01-0.08) x10^3/uL Sodium 142 (135-145) mmol/L Potassium 3.9 (3.5-5.1) mmol/L Chloride 112 H (98-107) mmol/L Carbon Dioxide 22 (22-30) mmol/L Anion Gap 12.2 (5-15) MEQ/L BUN 16 (7-17) mg/dL Creatinine 0.50 L (0.52-1.04) mg/dL Estimated GFR 94.8 ML/MIN Glucose 121 H (74-106) mg/dL Calcium 8.8 (8.4-10.2) mg/dL Magnesium 1.8 (1.6-2.3) mg/dL Total Bilirubin 0.30 (0.2-1.3) mg/dL AST 47 H (14-36) U/L ALT 38 H (0-35) U/L Alkaline Phosphatase 61 (38-126) U/L Creatine Kinase 465 H (30-135) U/L Serum Total Protein 5.7 L (6.3-8.2) g/dL Albumin 3.2 L (3.5-5.0) g/dL Radiology Exams: Radiology Procedures Category Date Time Status ECHO W/2D AND DOPPLER [US] Routine Exams 10/23/24 08:16 Taken Multi-Disciplinary Progress Notes: Multi-Disciplinary Progress Notes 10/24/24 12:40 Case Management Note by Kamille Dominguez HAS ACCEPTED PATIENT AND STARTED AUTH 10/23- AUTH STILL PENDING AT THIS TIME APS CALLED 10/23- THEY HAVE AN OPEN CASE FOR PATIENT- THEY WERE UPDATED ON PLAN TO DC TO [facility] FOR SHORT TERM REHAB STAY. THEY REQUEST TO BE UPDATED AT T [place] OF DC. S/W PATIENT SHE WAS NOTIFIED THAT HER BUILDING IS CONSIDERING NOT ALLOWING HER TO RETURN D/T SAFETY CONCERNS AND THAT APS WAS CONSULTED. SHE VERIFIED UNDERSTANDING. SHE CONTINUES TO PLAN TO GO TO [facility] AT TIME OF DC Initialized on 10/24/24 12:40 - END OF NOTE 10/23/24 15:09 Radiology Note by TONO KOCH TRANSTHORACIC ECHOCARDIOGRAM 10/23/2024: 1. Normal chamber sizes. 2. Mild concentric left ventricular hypertrophy. 3. Normal left ventricular systolic function without focal wall motion abnormalities. Estimated EF 60-65%. 4. Normal right ventricular systolic function. 5. Unable to determine grade of LV dysfunction due to underlying atrial flutter 6. Normal right ventricular systolic function. 7. Mildly dilated proximal ascending aorta (3.7 cm). 8. Mild aortic sclerosis without stenosis. 9. Doppler: Mild to moderate mitral regurgitation, mild tricuspid regurgitation. 10. Mildly elevated PA systolic pressure (36 mmHg). 11. Mildly elevated right atrial pressure (8 mmHg). 12. No pericardial effusion. Tono Koch MD [facility] Initialized on 10/23/24 15:09 - END OF NOTE Assessment/Plan (1) Atrial fibrillation and flutter Current Visit: Yes Status: Acute Code(s): I48.91 - UNSPECIFIED ATRIAL FIBRILLATION; I48.92 - UNSPECIFIED ATRIAL FLUTTER (2) Pneumonia Current Visit: Yes Status: Acute Qualifiers: Pneumonia type: due to COVID-19 virus Qualified Code(s): U07.1 - COVID-19; J12.82 - Pneumonia due to coronavirus disease 2019 Code(s): J18.9 - PNEUMONIA, UNSPECIFIED ORGANISM (3) Rhabdomyolysis Current Visit: Yes Status: Acute Code(s): M62.82 - RHABDOMYOLYSIS (4) Tibial plateau fracture, left Current Visit: Yes Status: Acute Code(s): S82.142A - DISPLACED BICONDYLAR FRACTURE OF LEFT TIBIA, INIT (5) Transaminitis Current Visit: Yes Status: Acute Code(s): R74.01 - ELEVATION OF LEVELS OF LIVER TRANSAMINASE LEVELS (6) UTI (urinary tract infection) Current Visit: Yes Status: Acute Code(s): N39.0 - URINARY TRACT INFECTION, SITE NOT SPECIFIED (7) COVID-19 Current Visit: No Status: Acute Code(s): U07.1 - COVID-19 (8) Weakness Current Visit: No Status: Acute Code(s): R53.1 - WEAKNESS (9) Obesity (BMI 30.0-34.9) Current Visit: Yes Status: Chronic Code(s): E66.811 - OBESITY, CLASS 1 (10) HTN (hypertension) Current Visit: Yes Status: Chronic Qualifiers: Hypertension type: primary hypertension Qualified Code(s): I10 - Essential (primary) hypertension Code(s): I10 - ESSENTIAL (PRIMARY) HYPERTENSION (11) Insomnia Current Visit: Yes Status: Chronic Assessment & Plan: (1) Atrial fibrillation and flutter Current Visit: Yes Status: Acute Assessment & Plan: - New onset- possibly secondary to infection - Tele - Trop x 1 WNL - Echo today - Noted on EKG/Tele - Rate controlled - BP soft - continue IVF for now- Hold BB for now - Chadvasc score of 4- - Cards consulted- note reviewed and clarification of Eliquis dose - Pt started on Eliquis 5mg BID per cardiology. 10/24 - HR controlled - Echo TTE 10/23/2024: 1. Normal chamber sizes. 2. Mild concentric left ventricular hypertrophy. 3. Normal left ventricular systolic function without focal wall motion abnormalities. Estimated EF 60-65%. 4. Normal right ventricular systolic function. 5. Unable to determine grade of LV dysfunction due to underlying atrial flutter 6. Normal right ventricular systolic function. 7. Mildly dilated proximal ascending aorta (3.7 cm). 8. Mild aortic sclerosis without stenosis. 9. Doppler: Mild to moderate mitral regurgitation, mild tricuspid regurgitation. 10. Mildly elevated PA systolic pressure (36 mmHg). 11. Mildly elevated right atrial pressure (8 mmHg). 12. No pericardial effusion. Code(s): I48.91 - UNSPECIFIED ATRIAL FIBRILLATION; I48.92 - UNSPECIFIED ATRIAL FLUTTER (2) Pneumonia Current Visit: Yes Status: Acute Qualifiers: Pneumonia type: due to COVID-19 virus Qualified Code(s): U07.1 - COVID-19; J12.82 - Pneumonia due to coronavirus disease 2018 Assessment & Plan: - CXR reviewed- demonstrates mild right base infiltrate/atelectasis without consolidation/large effusion - Continue ceftriaxone and azithromycin, steroids, xoponex - RA 96% - CBC, CMP reviewed 10/24 - RA 93% - CBC, CMP reviewed Code(s): J18.9 - PNEUMONIA, UNSPECIFIED ORGANISM (3) Rhabdomyolysis Current Visit: Yes Status: Acute Assessment & Plan: - CK improving 1037 - Continue IVF 10/24 - CK 465 - muscle aches improved Code(s): M62.82 - RHABDOMYOLYSIS (4) Tibial plateau fracture, left Current Visit: Yes Status: Acute Assessment & Plan: - As seen on XR - Ortho consult- awaiting recs - Denies pain 10/24 - Discussed with ortho nurse the need for ortho note and recs Code(s): S82.142A - DISPLACED BICONDYLAR FRACTURE OF LEFT TIBIA, INIT (5) Transaminitis Current Visit: Yes Status: Acute Assessment & Plan: - Improving AST 55, ALT 36 - Continue IVF - No abd. pain 10/24 - AST 47, ALT 38- improved Code(s): R74.01 - ELEVATION OF LEVELS OF LIVER TRANSAMINASE LEVELS (6) UTI (urinary tract infection) Current Visit: Yes Status: Acute Assessment & Plan: - UC + Enterobactor Clocae - Stop ceftriaxone- start cefepime per [facility] antibiogram Code(s): N39.0 - URINARY TRACT INFECTION, SITE NOT SPECIFIED (7) COVID-19 Current Visit: No Status: Acute Assessment & Plan: - + test in ER -Remdesivir, Dexamethasone - RA 96% - Eliquis BID Code(s): U07.1 - COVID-19 (8) Weakness Current Visit: No Status: Acute Assessment & Plan: - PT/OT - Discussed with case management possible need for rehab placement - Pt found on admission to have fallen and covered in feces with hair matted. Code(s): R53.1 - WEAKNESS (9) Obesity (BMI 30.0-34.9) Current Visit: Yes Status: Chronic Assessment & Plan: - Advised diet and exercise control Code(s): E66.811 - OBESITY, CLASS 1 (10) HTN (hypertension) Current Visit: Yes Status: Chronic Qualifiers: Hypertension type: primary hypertension Qualified Code(s): I10 - Essential (primary) hypertension Assessment & Plan: - Continue home meds, BP controlled Code(s): I10 - ESSENTIAL (PRIMARY) HYPERTENSION (11) Insomnia Current Visit: Yes Status: Chronic Assessment & Plan: - Pt reports she has not been sleeping well since admission and only slept 2 hours last night - Pt reports she takes xanax at night for sleep , will check INSPECT - Melatonin started for now d/t recent confusion. VTE: Eliquis 5mg BID PPI: Protonix Dispo: 1-2 days Code status: Full Code Next of KIN: Gladys Moreira [phone] Code(s): G47.00 - INSOMNIA, UNSPECIFIED Code(s): G47.00 - INSOMNIA, UNSPECIFIED
[2024-10-24] MEDS ORDERED: Sodium Chloride 3 ML UD NEBULES IH ONE (13:52)
[2024-10-24] MEDS ORDERED: Sodium Chloride 3 ML UD NEBULES IH SCH (14:30)
[2024-10-24] MEDS: MAG-OX 400 PO ONE (15:42)
[2024-10-24] MEDS: Klor Con PO ONE (15:42)
[2024-10-24] MEDS ORDERED: Xopenex 1.25 MG/0.5 ML UD NEBULE IH PRN (19:32)
[2024-10-25 06:24] LABS: ALBUMIN 3.4 g/dL (3.5-5.0); ANION GAP 11.2 MEQ/L (5-15); BILIRUBIN,TOTAL 0.5 mg/dL (0.2-1.3); Calcium 8.6 mg/dL (8.4-10.2); Creatinine 1 0.55 mg/dL (0.52-1.04); EST GLOMERULAR FILTRATION RATE 92.6 ML/MIN; Potassium 3.9 mmol/L (3.5-5.1); Total Protein 5.9 g/dL (6.3-8.2)
[2024-10-25 07:39] LABS: Absolute Neutrophil Ct (ANC) 3.07 x10^3/uL (1.56-6.13); BASOPHIL % 0.2 % (0.1-1.2); Basophil (Absolute #) 0.01 x10^3/uL (0.01-0.08); Eosinophil (Absolute #) 0 x10^3/uL (0.04-0.36); Hematocrit 37.6 % (34.1-44.9); Hemoglobin 12.5 g/dL (11.2-15.7); IMMATURE GRAN # 0.03 x10^3u/L (0.001-0.031); IMMATURE GRAN % 0.5 % (0.001-0.429); Lymphocyte (Absolute #) 1.74 x10^3/uL (1.18-3.74); Lymphocytes % 31.9 % (19.3-51.7); Mean Cell Volume 90.8 fL (79.4-94.8); Mean Corpuscular Hemoglobin 30.2 pg (25.6-32.2); Mean Corpuscular Hgb Concent. 33.2 g/dL (32.2-35.5); Mean Platelet Volume 9.9 fL (9.4-12.3); Monocyte (Absolute #) 0.61 x10^3/uL (0.24-0.86); Monocytes % 11.2 % (4.7-12.5); Neutrophil % 56.2 % (34.0-71.1); Platelet Count 148 x10^3/uL (182-369); Red Blood Count 4.14 x10^6/uL (3.93-5.22); Red Cell Distribution Width 14.1 % (11.7-14.4); White Blood Count 5.5 x10^3/uL (3.98-10.04)
--- NOTE | 2024-10-25 11:35 | PROG NOTE ---
SUBJECTIVE: The patient has no complaints, she is sitting up in a chair comfortable and reports no pain in her knee. OBJECTIVE: The patient is awake, alert, oriented and sitting up in a chair. She is conversant, follows commands well. She can move all 4 extremities. The left lower extremity was examined, and it is noted that her skin is intact without erythema or abnormal swelling or effusion. Scabbed lesions previously reported remain on the outside of left knee. She is tender mostly on the lateral side of her knee coinciding with the area where the scabbed areas are. She has mild tenderness of the medial side of her knee, but this is minimal. She tolerates varus and valgus stress testing at full extension and 30 degrees flexion, and this elicits no significant pain other than on the lateral side of the knee where hand pressure was applied for valgus stress. Passive flexion and extension from 0 to 90 were performed to the left knee without pain. She can do a straight leg raise. ASSESSMENT: The patient admitted with musculoskeletal pain and weakness after being found on the floor for an undetermined length of time. Initial admission diagnosis was rhabdomyolysis. She has been receiving physical therapy, is able to stand and walk with assistance with minimal left lower extremity antalgia. PLAN: Observation, proceed as tolerated with physical therapy, weight bear as tolerated, and may discharge when ECF arrangements are made.
[2024-10-25 12:39] VITALS: BP 164/103; PULSE 129; RESP 24; TEMP 97.6; O2SAT 93
--- NOTE | 2024-10-25 14:19 | PCM.DS ---
Discharge Summary Date of Admission: 10/21/24 15:52 Date of Discharge: 10/25/24 Admitting Physician: CONSUELO MCCLAIN MD Consults: Consults on Case 10/21/24 19:00 Consult Ortho ROUTINE 10/22/24 08:16 Consult Cardiology ROUTINE Primary Care Provider: HAY DENNIS Allergies Allergies NKA Allergy (Verified 10/21/24 13:10) Hospital Summary - Hospital Course Hospital Course: 10/23/24 Ms. Snyder is an 79-year-old female with a history of HTN and COPD. She presented to the ED 10/21/24 after being found on the floor by a neighbor, for an unknown period of downtime. Patient states the last thing she remembers is trying to get out of bed. She does not report any pain. She endorsed a non-productive cough and some mild light headedness. Her neighbor states she seems more confused than normal. Denies fever, sob, cp, abdominal pain, HILL, dizziness, N/V/D. On arrival, she was hemodynamically stable and alert. EKG showed atrial fibrillation with a controlled rate of 86 bpm and no signs of acute ischemia. Chest X-ray showed a right-sided infiltrate concerning for pneumonia. On admission laboratory evaluation revealed significant rhabdomyolysis (CK >3200, anion gap metabolic acidosis, mild transaminitis, and a urinary tract infection without leukocytosis. She received a 1L fluid bolus and Ceftriaxone in the ED. Admitted for rhabdomyolysis, UTI, COVID, and further evaluation/treatment of metabolic acidosis. It was seen on today she c/o overall muscle aching. Left knee XR on 10/21 showed a subtle lucent line is seen at the medial tibial plateau. (new finding), possibly non-displaced fracture/marrow contusion, please correlate with the maximum point of tenderness.Mild sclerotic changes of the patella with subchondral lucency. 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 (new finding). Ortho consulted and recs pending. Pt has no c/o of pain in the areas addressed on XR. PT and OT evals pending for extreme weakness and possible need for rehab. Eliquis 5mg BID started by cardiology yesterday for new onset atrial flutter as seen on admission EKG. Cardiology notes states to start 2.5 of Eliquis BID but discussed with cardiology and this was an error in the note. Clarification with cards is in fact 5mg BID. Echo pending today. Mg+ 1.8 and replaced to keep > 2. Continue Dexamethasone and Remdesivir for treatment of COVID. Continue IV antibiotics, Xoponex, steroids for pneumonia. She is room air 96%. CK improving and 1037 today- continue IVF for Rhabdo. Pt denies CP, SOB, abd. pain, N/V/D. 10/24/24 Pt resting in bed. She states she is feeling much better today and has less muscle aches. CK improved at 465, continue IVF. Heart rate controlled. Echo reviewed and EF 60-65%. Continue Dexamethasone and Remdesivir for treatment of COVID. Continue IV antibiotics, Xoponex, steroids for pneumonia. She is room air 93%. Pt denies CP, SOB, abd. pain, N/V/D. APS now involved in care per case management. 10/25/24 Pt resting in bed. She is feeling better and ready to d/c to rehab today. She has been accepted and will leave at 15:30. CK 207. Will continue OP antibiotics for pneumonia and UTI. She has continued weakness. She denies CP, SOB, abd. pain, N/V/D. - Vitals & Intake/Output Vital Signs: Vital Signs Temperature 97.6 F 10/25/24 12:00 Pulse Rate 129 H 10/25/24 12:00 Respiratory Rate 24 10/25/24 12:00 Blood Pressure 164/103 10/25/24 12:00 O2 Sat by Pulse Oximetry 93 L 10/25/24 12:00 Intake & Output: Intake & Output 10/23/24 10/24/24 10/25/24 10/26/24 11:59 11:59 11:59 11:59 Intake Total 4253 4004 3827 Output Total 1300 2400 2600 Balance 2969 1604 1227 Weight 87.6 kg 87.6 kg 87.6 kg - Lab Result Diagrams: 10/25/24 07:36 10/25/24 05:58 Lab Results-Last 24 Hrs: Lab Results-Last 24 Hours 10/25/24 10/25/24 10/25/24 Range/Units 05:58 05:58 07:36 WBC Cancelled 5.5 Corrected WBC (auto) Cancelled RBC Cancelled 4.14 Hgb Cancelled 12.5 Hct Cancelled 37.6 MCV Cancelled 90.8 MCH Cancelled 30.2 MCHC Cancelled 33.2 RDW Cancelled 14.1 Plt Count Cancelled 148 L MPV Cancelled 9.9 Gran % Cancelled 56.2 Immature Gran % (Auto) Cancelled 0.5 H Nucleat RBC Rel Count Cancelled 0.0 Eos # (Auto) Cancelled 0 L Immature Gran # (Auto) Cancelled 0.03 Absolute Lymphs (auto) Cancelled 1.74 Absolute Monos (auto) Cancelled 0.61 Absolute Nucleated RBC Cancelled 0.00 Lymphocytes % Cancelled 31.9 Monocytes % Cancelled 11.2 Eosinophils % Cancelled 0.0 L Basophils % Cancelled 0.2 Absolute Granulocytes Cancelled 3.07 Basophils # Cancelled 0.01 Sodium 140 (135-145) mmol/L Potassium 3.9 (3.5-5.1) mmol/L Chloride 107 (98-107) mmol/L Carbon Dioxide 26 (22-30) mmol/L Anion Gap 11.2 (5-15) MEQ/L BUN 15 (7-17) mg/dL Creatinine 0.55 (0.52-1.04) mg/dL Estimated GFR 92.6 ML/MIN Glucose 114 H (74-106) mg/dL Calcium 8.6 (8.4-10.2) mg/dL Total Bilirubin 0.50 (0.2-1.3) mg/dL AST 40 H (14-36) U/L ALT 38 H (0-35) U/L Alkaline Phosphatase 60 (38-126) U/L Creatine Kinase 207 H (30-135) U/L Serum Total Protein 5.9 L (6.3-8.2) g/dL Albumin 3.4 L (3.5-5.0) g/dL Slides for Path Review Cancelled Micro Results-Entire Visit: Microbiology 10/21/24 12:51 Urine Culture - Final Catherized Enterobacter Clocae Complex#2 - Procedures and Test Procedures and Tests throughout Hospitalization: Therapy Orders & Screens 10/21/24 16:21 PT Eval & Treat ( Order) ONCE Reason for Eval:: weakness/fall Diagnosis: UTI/Rhabdo EKG REPEAT IN AM Comment: Diagnosis: UTI/Rhabdo Incentive Spirometry UD Comment: Diagnosis: UTI/Rhabdo Respiratory Therapy Consult ONCE Comment: Reason For Exam: Diagnosis: UTI/Rhabdo 10/21/24 19:02 Respiratory Therapy Consult ROUTINE Comment: Reason For Exam: Diagnosis: UIT, GREGORYO 10/22/24 09:00 FLUTTER [Flutter Therapy] UD Comment: Diagnosis: UIT, GREGORYO 10/22/24 09:19 Oxygen Nasal Cannula 1 lpm Comment: Diagnosis: UIT, GREGORYO Respiratory Therapy Assessment DAILY Comment: Diagnosis: UIT, RHABDO 10/23/24 09:05 OT Eval and Treat (MD Order) ONCE Comment: Physician Instructions: may need rehab Reason For Exam: weakness, holding elbow to take meds Evaluate: Yes Treat: Yes Reason for Evaluation: Extreme weakness per nursing Diagnosis: UIT, GREGORYO 10/23/24 11:04 ST Eval & Treat (MD Order) .as ordered Comment: Physician Instructions: Reason For Exam: RLL pneumonia Evaluate: Yes Treat: Yes Reason for Eval: RLL pneumonia Diagnosis: UIT, GREGORYO Discharge Exam General Appearance: no apparent distress, alert Neurologic Exam: alert, oriented x 3, cooperative, normal mood/affect, nml cerebellar function, sensation nml, No motor deficits Eye Exam: PERRL, EOMI, eyes nml inspection Ears, Nose, Throat Exam: normal ENT inspection, pharynx normal, moist mucous mem branes Neck Exam: normal inspection, non-tender, supple, full range of motion Respiratory Exam: normal breath sounds, lungs clear, No respiratory distress Cardiovascular Exam: regular rate/rhythm, normal heart sounds Gastrointestinal/Abdomen Exam: soft, No tenderness, No mass Pelvic Exam: deferred Rectal Exam: deferred Back Exam: normal inspection, normal range of motion, No CVA tenderness, No vertebral tenderness Extremity Exam: normal inspection, normal range of motion Skin Exam: normal color, warm, dry Final Diagnosis/Problem List - Final Discharge Diagnosis/Problem (1) Atrial fibrillation and flutter Current Visit: Yes Status: Acute Code(s): I48.91 - UNSPECIFIED ATRIAL FIBRILLATION; I48.92 - UNSPECIFIED ATRIAL FLUTTER (2) Pneumonia Current Visit: Yes Status: Acute Code(s): J18.9 - PNEUMONIA, UNSPECIFIED ORGANISM (3) Rhabdomyolysis Current Visit: Yes Status: Acute Code(s): M62.82 - RHABDOMYOLYSIS (4) Tibial plateau fracture, left Current Visit: Yes Status: Acute Code(s): S82.142A - DISPLACED BICONDYLAR FRACTURE OF LEFT TIBIA, INIT (5) Transaminitis Current Visit: Yes Status: Acute Code(s): R74.01 - ELEVATION OF LEVELS OF LIVER TRANSAMINASE LEVELS (6) UTI (urinary tract infection) Current Visit: Yes Status: Acute Code(s): N39.0 - URINARY TRACT INFECTION, SITE NOT SPECIFIED (7) COVID-19 Current Visit: No Status: Acute Code(s): U07.1 - COVID-19 (8) Weakness Current Visit: No Status: Acute Code(s): R53.1 - WEAKNESS (9) Obesity (BMI 30.0-34.9) Current Visit: Yes Status: Chronic Code(s): E66.811 - OBESITY, CLASS 1 (10) HTN (hypertension) Current Visit: Yes Status: Chronic Code(s): I10 - ESSENTIAL (PRIMARY) HYPERTENSION (11) Insomnia Current Visit: Yes Status: Chronic Assessment & Plan: (1) Atrial fibrillation and flutter Current Visit: Yes Status: Acute Assessment & Plan: - New onset- possibly secondary to infection - Tele - Trop x 1 WNL - Echo today - Noted on EKG/Tele - Rate controlled - BP soft - continue IVF for now- Hold BB for now - Chadvasc score of 4- - Cards consulted- note reviewed and clarification of Eliquis dose - Pt started on Eliquis 5mg BID per cardiology. 3/25 - HR controlled - Echo TTE 10/23/2024: 1. Normal chamber sizes. 2. Mild concentric left ventricular hypertrophy. 3. Normal left ventricular systolic function without focal wall motion abnormalities. Estimated EF 60-65%. 4. Normal right ventricular systolic function. 5. Unable to determine grade of LV dysfunction due to underlying atrial flutter 6. Normal right ventricular systolic function. 7. Mildly dilated proximal ascending aorta (3.7 cm). 8. Mild aortic sclerosis without stenosis. 9. Doppler: Mild to moderate mitral regurgitation, mild tricuspid regurgitation. 10. Mildly elevated PA systolic pressure (36 mmHg). 11. Mildly elevated right atrial pressure (8 mmHg). 12. No pericardial effusion. Code(s): I48.91 - UNSPECIFIED ATRIAL FIBRILLATION; I48.92 - UNSPECIFIED ATRIAL FLUTTER (2) Pneumonia Current Visit: Yes Status: Acute Qualifiers: Pneumonia type: due to COVID-19 virus Qualified Code(s): U07.1 - COVID-19; J12.82 - Pneumonia due to coronavirus disease 2019 Assessment & Plan: - CXR reviewed- demonstrates mild right base infiltrate/atelectasis without consolidation/large effusion - Continue ceftriaxone and azithromycin, steroids, xoponex - RA 96% - CBC, CMP reviewed 10/24 - RA 93% - CBC, CMP reviewed 10/25 - CBC, CMP reviewed - Room air Code(s): J18.9 - PNEUMONIA, UNSPECIFIED ORGANISM (3) Rhabdomyolysis Current Visit: Yes Status: Acute Assessment & Plan: - CK improving 1037 - Continue IVF 10/24 - CK 465 - muscle aches improved 10/25 - CK 207 Code(s): M62.82 - RHABDOMYOLYSIS (4) Tibial plateau fracture, left Current Visit: Yes Status: Acute Assessment & Plan: - As seen on XR - Ortho consult- awaiting recs - Denies pain 10/24 - Discussed with ortho nurse the need for ortho note and recs - Discussed case with ortho over the phone and no surgery needed. Code(s): S82.142A - DISPLACED BICONDYLAR FRACTURE OF LEFT TIBIA, INIT (5) Transaminitis Current Visit: Yes Status: Acute Assessment & Plan: - Improving AST 55, ALT 36 - Continue IVF - No abd. pain 10/24 - AST 47, ALT 38- improved 10/25 - AST 40, ALT 38 Code(s): R74.01 - ELEVATION OF LEVELS OF LIVER TRANSAMINASE LEVELS (6) UTI (urinary tract infection) Current Visit: Yes Status: Acute Assessment & Plan: - UC + Enterobactor Clocae - Stop ceftriaxone- start cefepime per [facility] antibiogram Code(s): N39.0 - URINARY TRACT INFECTION, SITE NOT SPECIFIED (7) COVID-19 Current Visit: No Status: Acute Assessment & Plan: - + test in ER -Remdesivir, Dexamethasone - RA 96% - Eliquis BID Code(s): U07.1 - COVID-19 (8) Weakness Current Visit: No Status: Acute Assessment & Plan: - PT/OT - Discussed with case management possible need for rehab placement - Pt found on admission to have fallen and covered in feces with hair matted. 10/25 - D/C to rehab today Code(s): R53.1 - WEAKNESS (9) Obesity (BMI 30.0-34.9) Current Visit: Yes Status: Chronic Assessment & Plan: - Advised diet and exercise control Code(s): E66.811 - OBESITY, CLASS 1 (10) HTN (hypertension) Current Visit: Yes Status: Chronic Qualifiers: Hypertension type: primary hypertension Qualified Code(s): I10 - Essential (primary) hypertension Assessment & Plan: - Continue home meds, BP controlled Code(s): I10 - ESSENTIAL (PRIMARY) HYPERTENSION (11) Insomnia Current Visit: Yes Status: Chronic Assessment & Plan: - Pt reports she has not been sleeping well since admission and only slept 2 hours last night - Pt reports she takes xanax at night for sleep , will check INSPECT - Melatonin started for now d/t recent confusion. Code(s): G47.00 - INSOMNIA, UNSPECIFIED - Discharge Discharge Date: 10/25/24 (Rehab) Disposition: XFER OTHER Condition: Stable Prescriptions: New Apixaban [Eliquis 2.5 mg Tablet] 5 mg PO BID 30 Days #60 tablet levoFLOXacin [Levofloxacin] 750 mg PO DAILY 5 Days #5 tablet Continue ALPRAZolam 1 MG [Xanax 1 mg] 2 mg PO HS Lisinopril 5 mg [Zestril 5 MG] 5 mg PO DAILY Instructions: Preventing falls in adults Additional Instructions: [facility] ORDERS: ADMIT TO [facility] F[facility] PATIENT HAS AN OPEN CASE WITH APS Will need to follow up with cardiology
== END 2024-10-25 16:11 | DRG 308 ==
LOC: ED 12:00 → MED SURG 14:07 → UNDOADMOB 14:07 → MED SURG 15:52 → OBSVTOIN 15:52
PROVIDERS: ADMIT Internal Medicine; ATTEND Internal Medicine
DX: I48.91 Unspecified atrial fibrillation (principal); J12.82 Pneumonia due to coronavirus disease 2019; J18.9 Pneumonia, unspecified organism; U07.1 COVID-19; S82.142A Displaced bicondylar fracture of left tibia, initial encounter for closed fracture; M62.82 Rhabdomyolysis; N39.0 Urinary tract infection, site not specified; E87.29 Other acidosis; J44.9 Chronic obstructive pulmonary disease, unspecified; R74.01 Elevation of levels of liver transaminase levels; R53.1 Weakness; E66.811 Obesity, class 1; I10 Essential (primary) hypertension; G47.00 Insomnia, unspecified; R79.89 Other specified abnormal findings of blood chemistry; R93.89 Abnormal findings on diagnostic imaging of other specified body structures; W19.XXXA Unspecified fall, initial encounter; I48.3 Typical atrial flutter; Z79.899 Other long term (current) drug therapy; Z96.652 Presence of left artificial knee joint
CPT/HCPCS: 0241U; 36415; 36600; 70450; 71045; 73562; 80053; 81001; 82140; 82375; 82550; 82803; 83605; 83735; 84132; 84145; 84439; 84443; 84484; 85025; 85379; 87077; 87086; 87186; 93005; 93041; 93306; 94640; 94667; 94668; 94760; 97110; 97161; 97165; 97530; 97535; 99211; 99231; 99285; P9612; Q3014; J0248; J0456; J0692; J0696; J1100; J1650; A9270-GY